=== PATIENT | male | born 1985 | race Caucasian/White ===

== ENCOUNTER 2019-09-22 15:39 | Outpatient (CLI) | payer OTHER, SELFPAY ==
[2019-09-22 16:10] LABS: Basophils Percent Auto 0.6 % (0.2-1.2); Eosinophils Absolute Auto 0.1 K/mm3 (0-0.3); Eosinophils Percent Auto 1.7 % (0-4.4); Hematocrit 43.9 % (42.0-52.0); Hemoglobin 15.2 g/dL (14.0-18.0); Immature Granulocyte Absolute 0.04 K/mm3 (0.00-0.031); Immature Granulocyte Percent A 0.6 % (0-0.5); Lymphocytes Absolute Auto 1.56 K/mm3 (0.9-3.2); Lymphocytes Percent Auto 22.1 % (18.3-44.2); Mean Corpuscular HGB Conc 34.6 g/dl (32-36); Mean Corpuscular Hemoglobin 30.6 pg (26-34); Mean Corpuscular Volume 88.5 fl (80-100); Mean Platelet Volume 10.7 fl (7.4-10.4); Monocytes Absolute Auto 0.5 K/mm3 (0.1-0.6); Monocytes Percent Auto 7.5 % (2.6-8.5); Neutrophils Absolute Auto 4.8 K/mm3 (1.3-6.7); Neutrophils Percent Auto 67.5 % (45.5-73.1); Platelet Count Result 252 k/mm3 (150-375); Red Blood Count 4.96 M/mm3 (4.6-6.20); Red Cell Distribution Width 12.2 % (11.5-14.5); White Blood Count 7.1 K/mm3 (4.5-10.0)
[2019-09-22 16:22] LABS: Alanine Aminotransferase 27 U/L (4-50); Alkaline Phosphatase 77 U/L (38-126); Aspartate Amino Transferase 24 U/L (17-59); Bilirubin,Total 0.7 mg/dL (0.2-1.3); Blood Urea Nitrogen 19 mg/dL (9-20); Calcium 9.6 mg/dL (8.4-10.2); Carbon Dioxide 25 mmol/L (22-30); Chloride 105 mmol/L (98-107); Cholesterol 181 mg/dL (0-200); Estimated Glomerular Filt Rate > 60; Glucose 88 mg/dL (75-110); HDL Direct 35 mg/dL; Potassium 4.1 mmol/L (3.4-5.0); Sodium 139 mmol/L (137-145); Triglycerides 171 mg/dL (<150)
[2019-09-22 16:34] LABS: LDL Cholesterol Direct 118 mg/dL
[2019-09-22 16:53] LABS: Total Triiodothyronine (T3) 1.53 NG/ML (0.97-1.69)
[2019-09-22 17:25] LABS: Free T4 Free Thyroxine 0.76 ng/mL (0.78-2.19)
== END 2019-09-22 15:40 | disposition home or self-care (01) ==
PROVIDERS: PCP Family Medicine; Visit Provider Nurse Practitioner Family
DX: R10.11 Right upper quadrant pain (principal); R53.83 Other fatigue; Z13.220 Encounter for screening for lipoid disorders; Z13.6 Encounter for screening for cardiovascular disorders
CPT/HCPCS: 36415; 80053; 80061; 84439; 84443; 84480; 85025

== ENCOUNTER 2019-10-07 09:26 | Outpatient (CLI) | payer OTHER, SELFPAY ==
--- NOTE | ~2019-10-07 | US_ITS ---
US right upper quadrant DATE: 10/07/2019 09:57 INDICATION: Right upper quadrant abdominal pain TECHNIQUE: Real-time imaging of liver, pancreas, gallbladder areas COMPARISON: 08/07/2016 CT abdomen pelvis noncontrast examination FINDINGS: The pancreas is obscured by bowel gas. Fatty change of the liver. There is normal hepatopedal portal venous flow. No hepatic space-occupying mass lesion is evident. The common bile duct measures 3.9 mm, within normal range. One or more filling defects of the gallbladder with associated shadowing, consistent with cholelithia sis. Color wall thickness is not optimally defined the technologist reports positive sonographic Murp hy's sign. IMPRESSION: Cholelithiasis, positive sonographic Helms's sign. Acute cholecystitis is not excluded. Reviewed, dictated and finalized at [facility]. Reviewed, dictated and finalized at location B. IMPRESSION: Cholelithiasis, positive sonographic Helms's sign. Acute cholecyst itis is not excluded.
== END 2019-10-07 09:27 | disposition home or self-care (01) ==
PROVIDERS: PCP Family Medicine; Visit Provider Family Medicine
DX: K80.20 Calculus of gallbladder without cholecystitis without obstruction (principal)
CPT/HCPCS: 76705

== ENCOUNTER 2019-10-10 05:33 | Observation (INO) | payer OTHER, SELFPAY ==
--- NOTE | ~2019-10-10 | NM_ITS ---
EXAMINATION: NM hepatobiliary w pharm DATE: 10/12/2019 08:56 INDICATION: Right upper quadrant abdominal pain. COMPARISON: Ultrasound 10/10/2019 TECHNIQUE: 5.2 mCi Tc-99m mebrofenin (Choletec) was administered intravenously. Scintigraphic images of the abdomen were obtained for one hour. Then, 2 mg morphine IV was administered, and imaging was continued for 30 minutes. FINDINGS: There is normal clearance of radiotracer from the blood pool. There is homogeneous tracer u ptake by the liver. Activity progresses to the bowel by 15 minutes. There is no activity in the gall bladder. IMPRESSION: 1. Lack of activity in the gallbladder, consistent with acute cholecystitis. Reviewed, dictated and finalized at location B.
--- NOTE | ~2019-10-10 | US_ITS ---
EXAMINATION: US right upper quadrant DATE: 10/10/2019 07:27 INDICATION: Right upper quadrant abdominal pain TECHNIQUE: Multiple grayscale and Doppler ultrasound images of the abdomen were obtained. COMPARISON: 10/07/2019 and 08/07/2016 FINDINGS: The visualized portions of the body of the pancreas is normal. The majority of the pancreas is obscur ed by shadowing gas. Liver has normal contour, with a smooth surface. There is increased parenchymal echogenicity and coarsened echotexture consistent with diffuse hepatic steatosis. Small region of mor e hypoechoic focal fatty sparing along the gallbladder fossa. No intrahepatic biliary duct dilation suspected. Portal venous flow was seen in the hepatopetal, normal direction and has normal Doppler wa veform. Mobile sludge and shadowing gallstones in the otherwise normal-appearing gallbladder. The com mon bile duct measures 4 mm, which is normal. Sonographic Helms sign was reported as positive by the materials scheduler. Visualized portion of the right kidney demonstrates normal echogenicity with no hydrone phrosis. Proximal inferior vena cava is normal. IMPRESSION: 1. Cholelithiasis with positive sonographic Helms's but normal-appearing gallbladder which is equivo flako for acute cholecystitis. Could consider HIDA scan for further evaluation. Reviewed, dictated and finalized at location A. IMPRESSION: 1. Cholelithiasis with positive sonographic Helms's but normal-appearing gallb ladder which is equivocal for acute cholecystitis. Could consider HIDA scan for further evaluation.
[2019-10-10 05:46] VITALS: PULSE 70; RESP 20; TEMP 36.3; O2SAT 100
[2019-10-10 06:01] VITALS: BP 137/92
[2019-10-10 06:03] LABS: Basophils Absolute Auto 0.1 K/mm3 (0.0-0.1); Basophils Percent Auto 0.6 % (0.2-1.2); Eosinophils Absolute Auto 0.1 K/mm3 (0-0.3); Eosinophils Percent Auto 0.4 % (0-4.4); Hematocrit 44.3 % (42.0-52.0); Hemoglobin 15.4 g/dL (14.0-18.0); Immature Granulocyte Absolute 0.06 K/mm3 (0.00-0.031); Immature Granulocyte Percent A 0.4 % (0-0.5); Lymphocytes Absolute Auto 1.18 K/mm3 (0.9-3.2); Lymphocytes Percent Auto 8.4 % (18.3-44.2); Mean Corpuscular HGB Conc 34.8 g/dl (32-36); Mean Corpuscular Hemoglobin 30.4 pg (26-34); Mean Corpuscular Volume 87.5 fl (80-100); Mean Platelet Volume 10.7 fl (7.4-10.4); Monocytes Absolute Auto 0.5 K/mm3 (0.1-0.6); Monocytes Percent Auto 3.3 % (2.6-8.5); Neutrophils Absolute Auto 12.2 K/mm3 (1.3-6.7); Neutrophils Percent Auto 86.9 % (45.5-73.1); Platelet Count Result 287 k/mm3 (150-375); Red Blood Count 5.06 M/mm3 (4.6-6.20); Red Cell Distribution Width 11.9 % (11.5-14.5); White Blood Count 14.1 K/mm3 (4.5-10.0)
--- NOTE | 2019-10-10 06:08 | ED.ABDPAIN ---
HPI - Abdominal Pain General Chief Complaint: Abdominal Pain <Awa Ahmadi MD - Last Filed: 10/10/19 20:20> Stated Complaint: RUQ pain <Awa Ahmadi MD - Last Filed: 10/10/19 20:20> Time Seen by Provider: 10/10/19 06:01 <Awa Ahmadi MD - Last Filed: 10/10/19 20:20> History of Present Illness HPI narrative: Patient presents with his for right upper quadrant pain. He has known gallstones and has had gallbladder attacks before. This episode of pain started at 1 AM. He last ate at 8 PM. He gives the pain a 9 out of 10. He has no nausea. <Awa Ahmadi MD - Last Filed: 10/10/19 20:20> MD elicited complaint: abdominal pain <Awa Ahmadi MD - Last Filed: 10/10/19 20:20> Pertinent past history: other (Cholelithiasis) <Awa Ahmadi MD - Last Filed: 10/10/19 20:20> Onset (ago): hour(s) <Awa Ahmadi MD - Last Filed: 10/10/19 20:20> Pain Consistency: constant <Awa Ahmadi MD - Last Filed: 10/10/19 20:20> Location: RUQ <Awa Ahmadi MD - Last Filed: 10/10/19 20:20> Severity: severe <Awa Ahmadi MD - Last Filed: 10/10/19 20:20> Quality: stabbing <Awa Ahmadi MD - Last Filed: 10/10/19 20:20> Migration to: no migration <Awa Ahmadi MD - Last Filed: 10/10/19 20:20> Exacerbating factors: nothing <Awa Ahmadi MD - Last Filed: 10/10/19 20:20> Relieving factors: nothing <Awa Ahmadi MD - Last Filed: 10/10/19 20:20> Associated symptoms: denies other symptoms <Awa Ahmadi MD - Last Filed: 10/10/19 20:20> Related Data Home Medications: Home Medications Medication Instructions Recorded Confirmed No Home Medications 10/10/19 10/10/19 <Awa Ahmadi MD - Last Filed: 10/10/19 20:20> Allergies/Adverse Reactions: Allergies Allergy/AdvReac Type Severity Reaction Status Date / Time shrimp Allergy Intermediate Itching Verified 10/10/19 09:06 Lobster Allergy Intermediate Itching Uncoded 10/10/19 09:07 <Awa Ahmadi MD - Last Filed: 10/10/19 20:20> Review of Systems Review of Systems: Narrative: CONSTITUTIONAL: Denies fever, chills, or sweats. EYES: Denies visual changes, redness, or discharge. ENT: Denies rhinorrhea, congestion, sore throat, or otalgia. CARDIOVASCULAR: Denies chest pain, palpitations, or edema. RESPIRATORY: Denies cough or dyspnea. GASTROINTESTINAL: He has abdominal pain, but not nausea, vomiting, or diarrhea. GENITOURINARY: Denies dysuria or hematuria. SKIN: Denies rash or itching. MUSCULOSKELETAL: Denies back pain, joint pain, or myalgia. NEUROLOGIC: Denies headache, numbness, or weakness. <Awa Ahmadi MD - Last Filed: 10/10/19 20:20> All systems reviewed & are unremarkable except as noted in HPI and below <Awa Ahmadi MD - Last Filed: 10/10/19 20:20> PMFSH Surgical History Surgical History: Surgical History (Updated 10/10/19 @ 06:11 by Awa Ahmadi MD) History of adenoidectomy History of tonsillectomy <Awa Ahmadi MD - Last Filed: 10/10/19 20:20> Social History Social History: Social History Smoking status: Never smoker Alcohol intake: never Substance use: never Gender identity (if verbalized by the patient): Male Spiritual care concerns: No <Awa Ahmadi MD - Last Filed: 10/10/19 20:20> Exam Narrative: Exam Narrative: GENERAL: Well-appearing, well-nourished, rocking in moderate distress. HEAD: Normocephalic, atraumatic. EYES: PERRLA and EOMI. ENT: Nares clear, no rhinorrhea or epistaxis. Mucous membranes moist. NECK: Supple. CHEST: Clear to auscultation. No respiratory distress. HEART: Regular rate and rhythm. No murmur heard. Normal peripheral pulses. ABDOMEN: Soft, nontender, nondistended, normal active bowel sounds. EXTREMITIES: Normal range of motion. No edema. SKIN: Warm, dry, no rash. NEURO: No focal deficits. Alert and oriented x3. PSYCH: Normal mood and affect. <Awa Ahmadi MD - Last File
[2019-10-10 06:10] LABS: Add Urine Microscopic? YES; Amorphous Sediment Urine Few; Appearance Urine Cloudy (Clear); Bacteria Urine Trace /hpf; Bilirubin Urine Negative (Negative); Blood Urine Negative (Negative); Color Urine Yellow (Yellow); Glucose Urine UA Negative (Negative); Ketones Urine Trace mg/dL (Negative); Leukocyte Esterase Ur Negative LEU/UL (Negative); Mucus Urine Few /lpf; Nitrate Urine Negative (Negative); Protein Urine Negative (Negative); RBC Urine 0-2 /hpf (0-2); Urobilinogen Urine Negative mg/dL (<2.0)
[2019-10-10 06:13] LABS: Alanine Aminotransferase 30 U/L (4-50); Alkaline Phosphatase 97 U/L (38-126); Anion Gap 14 mmol/L (8-16); Aspartate Amino Transferase 25 U/L (17-59); Bilirubin,Total 0.3 mg/dL (0.2-1.3); Blood Urea Nitrogen 17 mg/dL (9-20); Calcium 9.8 mg/dL (8.4-10.2); Carbon Dioxide 21 mmol/L (22-30); Chloride 107 mmol/L (98-107); Estimated Glomerular Filt Rate > 60; Glucose 150 mg/dL (75-110); Lipase 115 U/L (23-300); Potassium 3.6 mmol/L (3.4-5.0); Sodium 142 mmol/L (137-145)
[2019-10-10] MEDS: MORPHINE SULFATE 4 MG/ML INJ IV PUSH ×4 (06:13→16:05)
[2019-10-10] MEDS: SODIUM CHLORIDE 0.9% IV 1,000 ML 999 ML IV CONT (06:14)
[2019-10-10 08:39] VITALS: TEMP 36.7
--- NOTE | 2019-10-10 09:02 | ADMGEN ---
This patient, Sebastián Denis, was admitted to Medical Room 243-01. Patient/family oriented to hospital policies and general routines including ID bracelet, bed and alarms, visiting hours, pain management, procedures, bathroom and other care routines, personal items, smoking policy, room service/diet, and visiting hours. Valuables list has been completed. Information on how to activate the Rapid Response Team has been discussed. Patient/Family are encouraged to report perceived risks to care and to ask questions if they do not understand what they are told or what they should do.
[2019-10-10 09:12] VITALS: BP 138/68; PULSE 60; RESP 19; TEMP 36.5; O2SAT 100; BMI 27.3
[2019-10-10] MEDS: SODIUM CHLORIDE 0.9% IV 1,000 ML 125 ML IV CONT ×2 (09:25→17:28)
--- NOTE | 2019-10-10 12:03 | PM.IMHP ---
H&P: HPI History of Present Illness Date/Time: 10/10/19 12:03 Chief complaint: RUQ pain, cholelithiasis Narrative: Sebastián Denis is a 34 year old male With past medical history of gallstone and on and off he has had right upper quadrant pain however this time the pain was worse 9/10, nausea and vomiting pain was not improving, patient presented emergency department for further evaluation abdominal ultrasound is equivocal recommending HIDA scan to further evaluate, patient has had general anesthesia in the past without any complication, denies any cardiac or lung issues his able to climb stairs without any difficulty or shortness of breath. will follow-up on HIDA scan is positive will have General surgery evaluate the patient possible surgery Review of Systems Review of Systems: All systems reviewed & are unremarkable except as noted in HPI and below [facility] Surgical History Surgical History (Updated 10/10/19 @ 06:11 by Awa Ahmadi MD) History of adenoidectomy History of tonsillectomy Social History Social History Smoking status: Never smoker Alcohol intake: never Substance use: never Gender identity (if verbalized by the patient): Male Spiritual care concerns: No Meds Home Medications and Allergies Home Medications Medication Instructions Recorded Confirmed Type No Home Medications 10/10/19 10/10/19 History Allergies Allergy/AdvReac Type Severity Reaction Status Date / Time shrimp Allergy Intermediate Itching Verified 10/10/19 09:06 Lobster Allergy Intermediate Itching Uncoded 10/10/19 09:07 Vital Signs Vital Signs - 24 hr 10/10/19 05:46 10/10/19 06:01 10/10/19 08:39 Temperature 97.3 F L 98.0 F Pulse Rate 70 Respiratory Rate 20 Blood Pressure 137/92 H Pulse Oximetry 100 10/10/19 09:12 Temperature 97.7 F Pulse Rate 60 Respiratory Rate 52 H Blood Pressure 138/68 Pulse Oximetry 100 Exam Const: General: no acute distress and uncomfortable HENMT: General nose exam: Normal nares present Mouth: Yes moist mucous membranes Eyes: General: appearance normal, both eyes and all related structures Sclera: sclerae normal Neck: Neck: supple Resp: Effort & Inspection: normal respiratory effort Auscultation: clear to auscultation bilaterally Cardio: Rate: regular rate Rhythm: regular rhythm GI: Other: bowel sounds are positive tender in right upper quadrant Skin: General skin exam: normal color Neuro: Speech: normal speech Sensory Exam: normal sensation Extrem: General: normal to inspection Psych: Affect: Anxious affect present H&P: Results Labs Labs: Short CBC 10/10/19 Range/Units 05:55 WBC 14.1 H (4.5-10.0) K/mm3 Hgb 15.4 (14.0-18.0) g/dL Hct 44.3 (42.0-52.0) % Plt Count 287 (150-375) k/mm3 BMP 10/10/19 05:55 Sodium 142 Potassium 3.6 Chloride 107 Carbon Dioxide 21 L BUN 17 Creatinine 0.90 Glucose 150 H Calcium 9.8 Liver Function 10/10/19 Range/Units 05:55 Total Bilirubin 0.3 (0.2-1.3) mg/dL AST 25 (17-59) U/L ALT 30 (4-50) U/L Alkaline Phosphatase 97 (38-126) U/L Albumin 5.0 (3.5-5.1) g/dL Urine 10/10/19 Range/Units 05:57 Urine Color Yellow (Yellow) Urine Appearance Cloudy H (Clear) Urine pH 8.0 (5.0-9.0) Ur Specific [place] 1.020 (1.001-1.035) Urine Protein Negative (Negative) mg/dL Urine Glucose (UA) Negative (Negative) mg/dL Assessment and Plan Assessment and plan (1) Abdominal pain: Qualifiers: Abdominal location: right upper quadrant Qualified Code(s): R10.11 - Right upper quadrant pain Code(s): R10.9 - Unspecified abdominal pain Status: Acute Assessment and Plan: Sebastián Denis is a 34 year old male With past medical history of gallstone and on and off he has had right upper quadrant pain however this time the pain was worse 9/10, nausea and vomiting pain was not improving, patient presented e
[2019-10-10 14:00] VITALS: BP 155/82; PULSE 114; RESP 17; TEMP 36.6; O2SAT 100
[2019-10-10 21:12] VITALS: BP 130/70; PULSE 87; RESP 16; TEMP 36.5; O2SAT 100
[2019-10-11] MEDS: SODIUM CHLORIDE 0.9% IV 1,000 ML 125 ML IV CONT ×3 (00:09→17:13)
[2019-10-11 05:37] LABS: Basophils Absolute Auto 0.1 K/mm3 (0.0-0.1); Basophils Percent Auto 0.6 % (0.2-1.2); Eosinophils Absolute Auto 0.3 K/mm3 (0-0.3); Eosinophils Percent Auto 2.6 % (0-4.4); Hematocrit 39.5 % (42.0-52.0); Hemoglobin 13.3 g/dL (14.0-18.0); Immature Granulocyte Absolute 0.06 K/mm3 (0.00-0.031); Immature Granulocyte Percent A 0.6 % (0-0.5); Lymphocytes Absolute Auto 1.84 K/mm3 (0.9-3.2); Lymphocytes Percent Auto 17.1 % (18.3-44.2); Mean Corpuscular HGB Conc 33.7 g/dl (32-36); Mean Corpuscular Hemoglobin 30.3 pg (26-34); Mean Platelet Volume 10.7 fl (7.4-10.4); Monocytes Absolute Auto 1.1 K/mm3 (0.1-0.6); Neutrophils Absolute Auto 7.4 K/mm3 (1.3-6.7); Neutrophils Percent Auto 69.1 % (45.5-73.1); Platelet Count Result 217 k/mm3 (150-375); Red Blood Count 4.39 M/mm3 (4.6-6.20); Red Cell Distribution Width 12.4 % (11.5-14.5); White Blood Count 10.8 K/mm3 (4.5-10.0)
[2019-10-11 05:45] VITALS: BP 113/71; PULSE 71; RESP 16; TEMP 36.1; O2SAT 98
[2019-10-11 06:01] LABS: Alanine Aminotransferase 22 U/L (4-50); Albumin Level 3.7 g/dL (3.5-5.1); Alkaline Phosphatase 66 U/L (38-126); Anion Gap 6 mmol/L (8-16); Aspartate Amino Transferase 19 U/L (17-59); Bilirubin,Total 0.5 mg/dL (0.2-1.3); Blood Urea Nitrogen 8 mg/dL (9-20); Calcium 8.3 mg/dL (8.4-10.2); Carbon Dioxide 22 mmol/L (22-30); Chloride 107 mmol/L (98-107); Estimated CRCL calculation 109 ml/min; Estimated Glomerular Filt Rate > 60; Glucose 113 mg/dL (75-110); Potassium 3.6 mmol/L (3.4-5.0); Sodium 135 mmol/L (137-145)
--- NOTE | 2019-10-11 13:43 | PM.IMPN ---
Progress Note: A&P Assessment and Plan (1) Abdominal pain: Qualifiers: Abdominal location: right upper quadrant Qualified Code(s): R10.11 - Right upper quadrant pain Code(s): R10.9 - Unspecified abdominal pain Status: Acute Assessment and Plan: 10/11/19 13:43 Sebastián Denis is a 34 year old male With past medical history of gallstone and on and off he has had right upper quadrant pain however this time the pain was worse 9/10, nausea and vomiting pain was not improving, patient presented emergency department for further evaluation abdominal ultrasound is equivocal recommending HIDA scan to further evaluate, patient has had general anesthesia in the past without any complication, denies any cardiac or lung issues his able to climb stairs without any difficulty or shortness of breath. today patient seen by surgery team started on clear liquid and advanced diet as tolerated, patient will have HIDA scan in the morning, will follow-up on HIDA scan if positive and General surgery will evaluate the patient and further recommendation to follow, patient is present in the room (2) Cholelithiasis: Code(s): K80.20 - Calculus of gallbladder without cholecystitis without obstruction Status: Acute Assessment and Plan: will follow-up on HIDA scan and further recommendation to follow Subjective Date/time seen: 10/11/19 13:43 Sebastián Denis is a 34 year old male With past medical history of gallstone and on and off he has had right upper quadrant pain however this time the pain was worse 9/10, nausea and vomiting pain was not improving, patient presented emergency department for further evaluation abdominal ultrasound is equivocal recommending HIDA scan to further evaluate, patient has had general anesthesia in the past without any complication, denies any cardiac or lung issues his able to climb stairs without any difficulty or shortness of breath. today patient seen by surgery team started on clear liquid and advanced diet as tolerated, patient will have HIDA scan in the morning, will follow-up on HIDA scan if positive and General surgery will evaluate the patient and further recommendation to follow, patient is present in the room Review of Systems Review of Systems: All systems reviewed & are unremarkable except as noted in HPI and below Exam Const: General: no acute distress and uncomfortable HENMT: General nose exam: Normal nares present Mouth: Yes moist mucous membranes Eyes: General: appearance normal, both eyes and all related structures Sclera: sclerae normal Neck: Neck: supple Resp: Effort & Inspection: normal respiratory effort Auscultation: clear to auscultation bilaterally Cardio: Rate: regular rate Rhythm: regular rhythm GI: Other: bowel sounds are positive tender in right upper quadrant Skin: General skin exam: normal color Neuro: Speech: normal speech Sensory Exam: normal sensation Extrem: General: normal to inspection Psych: Affect: Anxious affect present Objective Data Vital Signs Vital Signs: Vital Signs - 24 hr 10/10/19 14:00 10/10/19 21:12 10/11/19 05:45 Temperature 98 F 97.7 F 97.0 F L Pulse Rate 114 H 87 71 Respiratory Rate 17 16 16 Blood Pressure 155/82 H 130/70 113/71 Pulse Oximetry 100 100 98 Intake/Output Intake/Output: Intake & Output 10/08/19 10/09/19 10/10/19 10/11/19 23:59 23:59 23:59 23:59 Intake Total 2100 2000 Output Total 650 Balance 2100 1350 Meds/Results Medications: Active Medications Generic Name Dose Route Start Last Admin Trade Name Freq PRN Reason Stop Dose Admin Sodium Chloride 1,000 mls @ 125 mls/hr 10/10/19 08:10 10/11/19 08:35 Normal Saline Iv IV CONT 125 mls/hr .Q8H KIRK Administration Acetaminophen 1,000 mg in 100 mls @ 400 mls/hr 10/11/19 11:32 10/11/19 11:45 Ofirmev 1,000 Mg Ivpb IVPB 10/12/19 11:33 400 mls/hr Q6H PRN Administration Pain Morph
--- NOTE | 2019-10-11 13:55 | PM.CNGS ---
Assessment and Plan Assessment and plan (1) Cholelithiasis and cholecystitis without obstruction: Code(s): K80.10 - Calculus of gallbladder with chronic cholecystitis without obstruction Status: Acute Assessment and Plan: pain is better. Will go ahead and start liquids today. HIDA scan is ordered for tomorrow morning. If patient tolerating liquids and not having recurrence of his pain, he may be able to be discharged to return soon for laparoscopic cholecystectomy. Will see how he progresses after starting oral intake. History of Present Illness Consult details Consult date: 10/11/19 Reason for consult: gallstones Narrative: Patient is a 34-year-old man who has had episodes of right upper quadrant abdominal pain associated with nausea and occasionally vomiting. He was in the process of getting this evaluated and in fact had an ultrasound of the right upper quadrant on October 06. This ultrasound showed gallstones and a positive sonographic Helms sign. The patient however experienced severe right upper quadrant abdominal pain starting at 1:00 a.m. on October 09 and eventually came to the emergency room as this was not improving. In the emergency room he was noted to have tenderness in the right upper quadrant. His white blood cell count was elevated to 14,100. He had normal liver function tests and a normal lipase. He had an ultrasound which showed stones and a positive sonographic Helms sign. There was no gallbladder wall thickening or pericholecystic fluid. He was admitted to the hospitalist and I was asked to see the patient in consultation. This morning the patient tells me his abdomen feels quite a bit better than when he was in the emergency room. He still has some soreness and not a lot of appetite. He has had similar episodes but nothing anywhere near as severe as what he had yesterday. Review of Systems Review of Systems: All systems reviewed & are unremarkable except as noted in HPI and below ( HPI) [facility] Surgical History Surgical History History of adenoidectomy History of tonsillectomy Family History Family History Mother Family history of hypercholesterolemia Hypertension Diabetes mellitus Father Family history of liver disease Family history of alcoholism Other Family history of allergic disorder Social History Social History Smoking status: Never smoker Alcohol intake: never Substance use: never Gender identity (if verbalized by the patient): Male Spiritual care concerns: No Meds Home Medications and Allergies Home Medications Medication Instructions Recorded Confirmed Type No Home Medications 10/10/19 10/10/19 History Allergies Allergy/AdvReac Type Severity Reaction Status Date / Time shrimp Allergy Intermediate Itching Verified 10/10/19 09:06 Lobster Allergy Intermediate Itching Uncoded 10/10/19 09:07 Vital Signs Vital Signs - 24 hr 10/10/19 14:00 10/10/19 21:12 10/11/19 05:45 Temperature 36.6 C 36.5 C 36.1 C L Pulse Rate 114 H 87 71 Respiratory Rate 17 16 16 Blood Pressure 155/82 H 130/70 113/71 Pulse Oximetry 100 100 98 Exam Const: General: comfortable, no acute distress, alert and awake HENMT: Head: normocephalic and atraumatic Ears: hearing grossly normal bilaterally and external ears normal General nose exam: Normal external nose present, no nasal discharge noted and no epistaxis Face and sinus: normal facial exam, face symmetric, no tenderness and dry mucous membranes Mouth: Yes Normal oral and palatal mucosa present and No tongue abnormal Eyes: Conjunctivae: conjunctivae normal Sclera: sclerae normal Pupils: Equal, round and reactive pupils present EOM: EOMs intact bilaterally Neck: Neck: no lymphadenopathy, nontender and No submandibular swelling Thyroid:
[2019-10-11 14:00] VITALS: BP 118/65; PULSE 84; RESP 15; TEMP 36.6; O2SAT 98
[2019-10-11 19:20] LABS: Lipase 61 U/L (23-300)
[2019-10-11 22:00] VITALS: BP 107/66; PULSE 84; RESP 12; TEMP 37.3; O2SAT 100
[2019-10-12] MEDS: SODIUM CHLORIDE 0.9% IV 1,000 ML 125 ML IV CONT (01:26)
[2019-10-12 05:32] VITALS: BP 103/65; PULSE 73; RESP 12; TEMP 36.6; O2SAT 99
[2019-10-12 05:37] LABS: Basophils Percent Auto 0.5 % (0.2-1.2); Eosinophils Absolute Auto 0.3 K/mm3 (0-0.3); Eosinophils Percent Auto 3.5 % (0-4.4); Hematocrit 38.3 % (42.0-52.0); Immature Granulocyte Absolute 0.03 K/mm3 (0.00-0.031); Immature Granulocyte Percent A 0.4 % (0-0.5); Lymphocytes Absolute Auto 1.66 K/mm3 (0.9-3.2); Lymphocytes Percent Auto 20.9 % (18.3-44.2); Mean Corpuscular HGB Conc 33.9 g/dl (32-36); Mean Corpuscular Volume 88.2 fl (80-100); Mean Platelet Volume 10.6 fl (7.4-10.4); Monocytes Absolute Auto 0.6 K/mm3 (0.1-0.6); Monocytes Percent Auto 7.9 % (2.6-8.5); Neutrophils Absolute Auto 5.3 K/mm3 (1.3-6.7); Neutrophils Percent Auto 66.8 % (45.5-73.1); Platelet Count Result 219 k/mm3 (150-375); Red Blood Count 4.34 M/mm3 (4.6-6.20); White Blood Count 7.9 K/mm3 (4.5-10.0)
[2019-10-12 05:56] LABS: Alanine Aminotransferase 31 U/L (4-50); Albumin Level 3.6 g/dL (3.5-5.1); Alkaline Phosphatase 63 U/L (38-126); Anion Gap 6 mmol/L (8-16); Aspartate Amino Transferase 24 U/L (17-59); Bilirubin,Total 0.7 mg/dL (0.2-1.3); Blood Urea Nitrogen 6 mg/dL (9-20); Calcium 8.6 mg/dL (8.4-10.2); Carbon Dioxide 25 mmol/L (22-30); Chloride 108 mmol/L (98-107); Estimated CRCL calculation 109 ml/min; Estimated Glomerular Filt Rate > 60; Glucose 102 mg/dL (75-110); Potassium 3.6 mmol/L (3.4-5.0); Sodium 139 mmol/L (137-145)
--- NOTE | 2019-10-12 07:04 | PM.PNGS ---
Progress Note: A&P Assessment and Plan (1) Cholelithiasis and cholecystitis without obstruction: Code(s): K80.10 - Calculus of gallbladder with chronic cholecystitis without obstruction Status: Acute Assessment and Plan: Patient doing much better. Can go home after HIDA scan from my perspective. My office will call him tomorrow and we will proceed with laparoscopic cholecystectomy later this week or early next week. I discussed the procedure with him. Discharge instructions were written. Subjective Subjective Date/Time Seen: 10/12/19 07:04 Patient reports: pain is less ( Abdominal pain is gone. Tolerated liquids without problems.) and afebrile Review of Systems Review of Systems: All systems reviewed & are unremarkable except as noted in HPI and below Constitutional: Constitutional: Denies anorexia, Denies chills, Denies fever(s), Denies headache(s) and Denies poor appetite Cardiovascular: Cardiovascular: Denies chest pain and Denies dyspnea Respiratory: Respiratory: Denies cough and Denies dyspnea Gastrointestinal: Gastrointestinal: Reports as per HPI, Denies abdominal pain, Denies nausea and Denies vomiting Neurologic: Denies confusion and Denies headache(s) Exam Const: General: comfortable and no acute distress; No confusion Orientation/consciousness: patient oriented x3 and No confusion GI: Inspection: normal to inspection GI Palp: Yes Soft to palpation, No Tenderness to palpation present (GI), No Guarding due to palpation present (GI) and No Rebound tenderness present Auscultation: normal bowel sounds Neuro: General: patient oriented x3, no focal motor deficits and No confusion Extrem: General: no calf tenderness and no edema Psych: Affect: normal affect Insight: Good insight present (Psych) Judgement: Good judgement present (Psych) Objective Data Vital Signs Vital Signs: Vital Signs - 24 hr 10/11/19 14:00 10/11/19 22:00 10/12/19 05:32 Temperature 36.6 C 37.3 C 36.6 C Pulse Rate 84 84 73 Respiratory Rate 15 12 12 Blood Pressure 118/65 107/66 103/65 Pulse Oximetry 98 100 99 Intake/Output Intake/Output: Intake & Output 10/09/19 10/10/19 10/11/19 10/12/19 23:59 23:59 23:59 23:59 Intake Total 2100 5080 1110 Output Total 1325 1100 Balance 2100 3755 10 Meds/Results Medications: Active Medications Generic Name Dose Route Start Last Admin Trade Name Patrickq PRN Reason Stop Dose Admin Sodium Chloride 1,000 mls @ 125 mls/hr 10/10/19 08:10 10/12/19 01:26 Normal Saline Iv IV CONT 125 mls/hr .Q8H KIRK Administration Acetaminophen 1,000 mg in 100 mls @ 400 mls/hr 10/11/19 11:32 10/11/19 12:00 Ofirmev 1,000 Mg Ivpb IVPB 10/12/19 11:33 Infused Q6H PRN Infusion Pain Morphine Sulfate 4 mg 10/10/19 08:06 10/10/19 16:05 Morphine Sulfate Inj IV PUSH 4 mg Q2H PRN Administration Pain Rated 7-10 Radiology Results: ITS Impressions Upper Quadrant Ultrasound 10/10/19 07:38 IMPRESSION: 1. Cholelithiasis with positive sonographic Helms's but normal-appearing gallbladder which is equivocal for acute cholecystitis. Could consider HIDA scan for further evaluation. Labs Labs: Laboratory Results - last 24 hr 10/11/19 10/12/19 10/12/19 18:38 04:59 04:59 WBC 7.9 RBC 4.34 L Hgb 13.0 L Hct 38.3 L MCV 88.2 MCH 30.0 MCHC 33.9 RDW 12.0 Plt Count 219 MPV 10.6 H Immature Gran % (Auto) 0.4 Neut % (Auto) 66.8 Lymph % (Auto) 20.9 Martin % (Auto) 7.9 Eos % (Auto) 3.5 Baso % (Auto) 0.5 Lymph # (Auto) 1.66 Martin # (Auto) 0.6 Eos # (Auto) 0.3 Baso # (Auto) 0.0 Abs Immat Gran (auto) 0.03 Absolute Neuts (auto) 5.3 Absolute Nucleated RBC 0.0 Nucleated RBC % 0.0 Sodium 139 Potassium 3.6 Chloride 108 H Carbon Dioxide 25 Anion Gap 6 L BUN 6 L Creatinine 0.80 Estim Creat Clear Calc 109 Estimated GFR > 60 Glucose 102 Calc
--- NOTE | 2019-10-12 07:14 | PC.NURSE ---
Patient to NM per wheelchair, IV saline locked.
[2019-10-12] MEDS: MORPHINE SULFATE 2 MG/ML INJ IV PUSH (08:27)
--- NOTE | 2019-10-12 08:58 | PC.NURSE ---
Patient return from NM scan.
--- NOTE | 2019-10-12 09:59 | PM.DS ---
DS: Admitting Diagnosis Admitting Diagnosis Admitting Diagnosis: Right upper quadrant pain DS: Discharge Diagnosis Discharge Diagnosis (1) Abdominal pain: Qualifiers: Abdominal location: right upper quadrant Qualified Code(s): R10.11 - Right upper quadrant pain Code(s): R10.9 - Unspecified abdominal pain Status: Deleted Assessment and Plan: 10/11/19 13:43 Sebastián Denis is a 34 year old male With past medical history of gallstone and on and off he has had right upper quadrant pain however this time the pain was worse 9/10, nausea and vomiting pain was not improving, patient presented emergency department for further evaluation abdominal ultrasound is equivocal recommending HIDA scan to further evaluate, patient has had general anesthesia in the past without any complication, denies any cardiac or lung issues his able to climb stairs without any difficulty or shortness of breath. today patient seen by surgery team started on clear liquid and advanced diet as tolerated, patient will have HIDA scan in the morning, will follow-up on HIDA scan if positive and General surgery will evaluate the patient and further recommendation to follow, patient is present in the room (2) Cholelithiasis: Code(s): K80.20 - Calculus of gallbladder without cholecystitis without obstruction Status: Deleted Assessment and Plan: will follow-up on HIDA scan and further recommendation to follow DS: Summary Hospital Course Reason for hospitalization: Chief complaint: RUQ pain, cholelithiasis Narrative: Sebastián Denis is a 34 year old male With past medical history of gallstone and on and off he has had right upper quadrant pain however this time the pain was worse 9/10, nausea and vomiting pain was not improving, patient presented emergency department for further evaluation abdominal ultrasound is equivocal recommending HIDA scan to further evaluate, patient has had general anesthesia in the past without any complication, denies any cardiac or lung issues his able to climb stairs without any difficulty or shortness of breath. will follow-up on HIDA scan is positive will have General surgery evaluate the patient possible surgery Hospital Course: Sebastián Denis is a 34 year old male With past medical history of gallstone and on and off he has had right upper quadrant pain however this time the pain was worse 9/10, nausea and vomiting pain was not improving, patient presented emergency department for further evaluation abdominal ultrasound is equivocal recommending HIDA scan to further evaluate, patient has had general anesthesia in the past without any complication, denies any cardiac or lung issues his able to climb stairs without any difficulty or shortness of breath. today patient seen by surgery team started on clear liquid and advanced diet as tolerated, patient will have HIDA scan in the morning, will follow-up on HIDA scan if positive and General surgery will evaluate the patient and further recommendation to follow, patient is present in the room Status at Discharge Functional status at discharge: independent ambulation Overall status at discharge: patient is back to baseline Time Spent with Patient Time attestation: Total time spent providing and/or coordinating discharge services: Patient was seen and examined at the time of the discharge Condition at discharge is stable Code status: Full code. Time spent preparing discharge summary, discharge medications, discussing discharge planning with case resolution specialist and patient is 35 minutes. Time spent: Greater than 30 minutes Exam Const: General: no acute distress and uncomfortable HENMT: General nose exam: Normal nares present Mouth: Yes moist mucous membranes Eyes: General: appearance normal, both eyes and all related structures Sclera: sclerae normal Neck: Neck: supple Resp: Effort & Inspection: normal respiratory effort Auscultation: lorna
== END 2019-10-12 10:28 | disposition home or self-care (01) ==
LOC: ANHED 08:05 → ANH2MED 08:23
PROVIDERS: Emergency Medicine; Admitting Provider Family Medicine; Emergency Provider Emergency Medicine; PCP Family Medicine; Visit Provider Family Medicine
DX: K80.10 Calculus of gallbladder with chronic cholecystitis without obstruction (principal)
CPT/HCPCS: 36415; 76705; 78227; 80053; 81001; 83690; 85025; 96361; 96374; 96375; 96376; 99285; A9537; G0378; J0131; J1170; J2270; J7030

== ENCOUNTER 2019-10-17 01:52 | Outpatient (CLI) | payer OTHER, SELFPAY ==
[2019-10-17 18:01] LABS: SARS-CoV-2 RNA PCR Negative
== END 2019-10-17 01:53 | disposition home or self-care (01) ==
LOC: ANHCOVIDDT 01:52
PROVIDERS: PCP Family Medicine; Visit Provider Surgery
DX: Z01.812 Encounter for preprocedural laboratory examination (principal); Z20.828 Contact with and (suspected) exposure to other viral communicable diseases
CPT/HCPCS: 87635; C9803; U0003

== ENCOUNTER 2019-10-17 07:12 | Outpatient (CLI) | payer OTHER, SELFPAY ==
[2019-10-17 08:00] LABS: Alanine Aminotransferase 23 U/L (4-50); Albumin Level 4.4 g/dL (3.5-5.1); Alkaline Phosphatase 67 U/L (38-126); Amylase 118 U/L (30-110); Aspartate Amino Transferase 21 U/L (17-59); Bilirubin,Total 0.6 mg/dL (0.2-1.3); Lipase 87 U/L (23-300)
== END 2019-10-17 07:13 | disposition home or self-care (01) ==
PROVIDERS: PCP Family Medicine; Visit Provider Surgery
DX: K80.10 Calculus of gallbladder with chronic cholecystitis without obstruction (principal)
CPT/HCPCS: 36415; 80076; 82150; 83690; 86850; 86900; 86901

== ENCOUNTER 2019-10-20 03:25 | Day surgery (SDC) | payer OTHER, SELFPAY ==
[2019-10-13 10:20] VITALS: BMI 31.1
[2019-10-20] VITALS (9 sets, daily range): BP systolic 103–132; BP diastolic 60–77; PULSE 72–98; RESP 12–23; TEMP 36.1–36.7; O2SAT 98–100
[2019-10-20] MEDS: ACETAMINOPHEN 500 MG TABLET 1000 MG PO (08:54)
[2019-10-20] MEDS: LACTATED RINGERS 1,000 ML 30 ML IV CONT ×2 (08:55→11:48)
[2019-10-20] MEDS: KETOROLAC 15 MG/ML VIAL (*BKC) IV PUSH (09:02)
--- NOTE | 2019-10-20 09:29 | WPDANESEPPF ---
Anes - Initial Pre Proc Eval Procedure: Operation Date: 10/20/19 10:00 Proposed Procedures p Laparoscopic Cholecystectomy - Angel Villanueva MD Date/Time: 10/20/19 09:29 Surgeon: Angel Villanueva MD Pre Op Diagnosis: chronic cholecystitis with stones Patient Data Age: 34 Gender: M Height: 5 ft 8 in Weight: 88.1 kg Last Vital Signs Temp 36.7 C 10/20/19 08:23 Pulse 98 10/20/19 08:23 Resp 16 10/20/19 08:23 BP 132/77 10/20/19 08:23 Pulse Ox 100 10/20/19 08:23 Allergies Allergy/AdvReac Type Severity Reaction Status Date / Time shrimp Allergy Intermediate SCRATCHY Verified 10/20/19 08:38 THROAT Lobster Allergy Intermediate SCRATCHY Uncoded 10/20/19 08:38 THROAT Home Medications Medication Instructions Recorded Confirmed Type No Home Medications 10/10/19 10/20/19 History Patient hx anesthesia problems: none Family hx anesthesia problems: none PMFSH Past Medical History Medical History OCD (obsessive compulsive disorder) Surgical History Surgical History History of adenoidectomy History of tonsillectomy Family History Family History Mother Family history of hypercholesterolemia Hypertension Diabetes mellitus Father Family history of liver disease Family history of alcoholism Other Family history of allergic disorder Social History Social History Smoking status: Never smoker Alcohol intake: never Substance use: never Gender identity (if verbalized by the patient): Male Spiritual care concerns: No Anes - Eval Final PreProcedure Day of Procedure 10/20/19 09:29 Patient weight: overweight Heart: regular rate and rhythm Lungs: clear to auscultation Airway: Mallampati scale class II Neurological: alert and oriented Last oral intake: >/= 8 hours ASA classification: II Emergent: no Anesthetic plan: proceed Anesthesia type and monitoring: general ETT and standard monitoring Informed Consent: The patient's anesthetic plan and its attendant risks and benefits were discussed with the patient/family/POA. Questions were solicited and answers provided to the satisfaction of the patient/family/POA.
[2019-10-20] MEDS: SCOPOLAMINE 1.5 MG PATCH TRANSDERM (09:44)
--- NOTE | 2019-10-20 10:02 | WPDHPUPDATE1 ---
History and Physical Update Update Date/Time: 10/20/19 10:02 History and Physical has been reviewed, including an updated exam of the patient. There are NO changes in the patient's condition. Risks, benefits, and alternatives have been discussed and questions answered. Patient agrees to proceed with procedure.
[2019-10-20] MEDS: ceFAZolin 2 GM/D5W 50 ML 2 GM/50 ML BAG IVPB (10:21)
[2019-10-20] MEDS: BUPIVACAINE/EPINEPHRINE 0.5% 30 ML VIAL INFILTRATE (10:36)
--- NOTE | 2019-10-20 11:55 | PM.PROC ---
Procedure Note - Detailed Date of procedure: 10/20/19 Pre-op diagnosis: chronic cholecystitis with stones Chronic cholecystitis, cholelithiasis Post-op diagnosis: same Procedure performed: Laparoscopic cholecystectomy Description of procedure: The patient was taken to surgery and induced into general anesthesia. The abdomen was prepped and draped. Trocars were placed in the usual fashion using 0.5% Marcaine with epinephrine and applied Medical optical trocars. A 5 millimeter camera was used. There were numerous right upper quadrant and, anterior abdominal wall adhesions that required adhesiolysis to visualize the gallbladder. These adhesions were taken down and we then proceeded with the surgery. The gallbladder had numerous adhesions as well. Some of these were taken down. The gallbladder was decompressed with a laparoscopic aspirator. The cholecystotomy was closed with a Vicryl endo-loop. The gallbladder wall was thickened and there were many stones in fact the gallbladder was full of gallstones. There was much evidence of chronic inflammation. More adhesions were taken down around the infundibulum of the gallbladder. These were more tenacious but eventually were freed such that the infundibulum of the gallbladder could be grasped. The gallbladder was retracted anterosuperiorly. Adhesions to the gallbladder were taken down so that the cholecystohepatic triangle was exposed as mentioned previously. Traction was placed on the infundibulum. The cystic duct and cystic artery were dissected out very clearly. The gallbladder was dissected off the liver at its lower 3rd. Critical view was achieved. We securely clipped and divided the cystic duct and cystic artery. The gallbladder was then further retracted so that the peritoneal attachments to the liver could be divided. Once the gallbladder was freed entirely, it was placed in an Endo-Catch bag and retrieved through the 10 11 epigastric trocar site. The epigastric trocar site had to be dilated to accommodate the gallbladder. Besides having a thickened gallbladder wall, there were many stones in the gallbladder making its removal more difficult. Eventually the gallbladder was extricated. The epigastric trocar was then replaced. We used a towel clip to occlude the epigastric trocar site so that we could reinsufflate. We reviewed the right upper quadrant. It was irrigated and suctioned. All looked good with no evidence of bleeding or bile leakage. We evacuated CO2 and removed the trocar sleeves. The fascia at the epigastric trocar site was closed with 0 Vicryl suture. Skin wounds were closed with subcuticular 4 O Monocryl skin suture. The wounds were dressed with Exofin surgical adhesive. Patient was awakened and taken to recovery in good condition. Sponge and needle counts were correct x2. Anesthesia: GETA and local (0.5% Marcaine with epinephrine) Surgeon: Angel Villanueva MD Controlled Area Checker: Tristian SHUKLA Estimated blood loss (mL): 20 Drains: No Packing: No Pathology: yes (Gallbladder) Complications: None Condition: stable Disposition: PACU Findings: severe chronic inflammation, many gallstones noted. No biliary ductal dilatation, no liver abnormalities.
== END 2019-10-20 13:28 | disposition home or self-care (01) ==
PROVIDERS: PCP Family Medicine; Visit Provider Surgery
PROC: 0FT44ZZ Resection of Gallbladder, Percutaneous Endoscopic Approach (ICD-10-PCS; CPT 47562; principal; 2019-10-20 10:00)
DX: K80.10 Calculus of gallbladder with chronic cholecystitis without obstruction (principal)
CPT/HCPCS: 47562; 88304; A9270; C1713; J0690; J1100; J1885; J2250; J2270; J2405; J2704; J3010; J7030; J7120

== ENCOUNTER 2021-03-21 12:47 | Emergency (ER) | payer OTHER, SELFPAY ==
--- NOTE | 2021-03-21 13:01 | ED.URI ---
HPI - URI/Sore Throat General Chief Complaint: Upper Respiratory Infection Stated Complaint: fever,chills,headache,sorethroat Time Seen by Provider: 03/21/21 13:08 Source: patient and RN notes reviewed Mode of arrival: ambulatory Limitations: no limitations History of Present Illness HPI Narrative: 36-year-old male presents with concern for sinus pain, fever, chills, headache, dizziness and cough. Reports symptoms started with sore throat on Saturday, the rest of the symptoms started yesterday. He reports his was recently positive for COVID. He denies any shortness of breath. Reports has been taking NyQuil and ibuprofen. MD elicited complaint: sore throat and sinus pain Related Data Allergies Allergy/AdvReac Type Severity Reaction Status Date / Time shrimp Allergy Intermediate SCRATCHY Verified 11/16/19 13:09 THROAT Lobster Allergy Intermediate SCRATCHY Uncoded 10/26/19 11:10 THROAT Review of Systems Review of Systems: CONSTITUTIONAL: Denies malaise, chills, sweats, or fever. EYES: Denies visual changes, redness, or discharge. ENT: Reports rhinorrhea, congestion, sinus pain, and sore throat. CARDIOVASCULAR: Denies chest pain, palpitations, or edema. RESPIRATORY: Reports cough. Denies dyspnea. GASTROINTESTINAL: Denies abdominal pain, nausea, vomiting, diarrhea SKIN: Denies rash or itching. MUSCULOSKELETAL: Denies myalgia. NEUROLOGIC: Denies headache. All systems reviewed & are unremarkable except as noted in HPI and below PMFSH Past Medical History Medical History (Updated 03/21/21 @ 13:22 by Sue Ruiz NP) OCD (obsessive compulsive disorder) Surgical History Surgical History History of adenoidectomy History of tonsillectomy Hx laparoscopic cholecystectomy 10/20/19 Family History Family History Mother Family history of hypercholesterolemia Hypertension Diabetes mellitus Father Family history of liver disease Family history of alcoholism Other Family history of allergic disorder Social History Social History Smoking status: Never smoker Alcohol intake: never Substance use: never Gender identity (if verbalized by the patient): Male Spiritual care concerns: No Comments At time of signature, agree with nursing past medical, surgical, social and family history. There is no relevant family history pertinent to the presenting complaint Exam Narrative: GENERAL: Well-appearing, well-nourished, and in no acute distress. HEAD: Normocephalic EYES: PERRLA, conjunctivae clear ENT: Nares clear, clear discharge. Mucous membranes moist. TM pearly michelle with dull light reflex bilaterally; no tragal tenderness. Oropharynx not erythematous without lesions. Tonsils not enlarged and without exudate, no drooling, no hoarseness, no trismus, uvula midline. NECK: Supple. No lymphadenopathy CHEST: Clear to auscultation, breath sounds equal. No wheezing, rhonchi, rales, or stridor. No respiratory distress, speaks in full sentences. HEART: Regular rate and rhythm. No murmur heard. SKIN: Warm, dry, no rash. NEURO: Alert and oriented x3. PSYCH: Normal mood and affect Course Course Emergency Course: Patient is aware of diagnosis, understands and agrees to treatment plan. Anticipatory guidance given. Patient agrees to follow-up as directed and is aware of reasons to seek care at the emergency department. Portions of this record may have been created with voice recognition software Level of Care: Express Care Visit Vital Signs Vital signs: Reviewed. MDM - URI/Sore Throat MDM Narrative Medical decision making narrative: Differential diagnosis considered: La virus, strep pharyngitis, allergic rhinitis, upper respiratory tract infection, sinusitis, rhinosinusitis, nasopharyngitis. 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
[2021-03-21 13:04] VITALS: BP 131/93; PULSE 93; RESP 16; TEMP 36.8; O2SAT 100
[2021-03-22 21:11] LABS: SARS-CoV-2 RNA PCR Positive
== END 2021-03-21 13:32 | disposition home or self-care (01) ==
PROVIDERS: Emergency Provider Nurse Practitioner
DX: U07.1 COVID-19 (principal)
CPT/HCPCS: 87426; 99213; C9803; G0463; U0003; U0005

== ENCOUNTER 2022-04-22 12:26 | Emergency (ER) | payer OTHER, SELFPAY ==
--- NOTE | 2022-04-22 12:30 | ED.URI ---
HPI - URI/Sore Throat General Chief Complaint: Upper Respiratory Infection Stated Complaint: dizziness,congestion Time Seen by Provider: 04/22/22 12:29 Source: patient Mode of arrival: ambulatory Limitations: no limitations History of Present Illness HPI Narrative: Sebastián is a 37-year-old male patient presenting to the clinic today with complaints dizziness and congestion x1.5 weeks. He denies any fever or chills. States that the congestion has gotten better although he still having some dizziness. States he feels as though the room is spinning. He denies any headache, visual changes, nausea, vomiting, or diarrhea MD elicited complaint: nasal congestion and other (Dizziness) Related Data Allergies Allergy/AdvReac Type Severity Reaction Status Date / Time shrimp Allergy Intermediate SCRATCHY Verified 04/22/22 12:39 THROAT Lobster Allergy Intermediate SCRATCHY Uncoded 04/22/22 12:39 THROAT Review of Systems Review of Systems: Pertinent positives per HPI. Patient denies any fever, chills, rash, headache, visual changes, dizziness, cough, shortness of breath, chest pain, palpitations, nausea, vomiting, diarrhea, constipation, abdominal pain, or any urinary issues. [facility] Past Medical History Medical History (Updated 04/22/22 @ 12:56 by David Morgan APRN) OCD (obsessive compulsive disorder) Surgical History Surgical History History of adenoidectomy History of tonsillectomy Hx laparoscopic cholecystectomy 10/20/19 Family History Family History Mother Family history of hypercholesterolemia Hypertension Diabetes mellitus Father Family history of liver disease Family history of alcoholism Other Family history of allergic disorder Social History Social History Smoking status: Never smoker Alcohol intake: never Substance use: never Gender identity (if verbalized by the patient): Male Spiritual care concerns: No Comments At the time of my signature, I reviewed and agree with the nursing past medical, surgical, social, and family history. There is no relevant family history pertinent to the patient complaint. Exam Narrative: General: Well-developed, well nourished, in no apparent distress Head: Normocephalic, atraumatic Eyes: Pupils equally round and reactive to light bilaterally, EOM intact, sclera and conjunctive clear, no discharge, lids normal Ears: Cerumen impaction in bilateral ear canals, ear irrigation and curette were used to remove the cerumen completely, TMs intact with some fluid noted behind the TMs with mild bulging, ear canals clear, no drainage, grossly hearing normal. Nose: Nares patent, clear nasal discharge, no inflammation, no sinus tenderness. Mouth: Oral pharynx without lesions or masses, good dentition, MMM. Neck: Supple, trachea midline, no enlargement of anterior or posterior cervical nodes, no thyroid masses or goiter palpable. Cardio: Regular rate and rhythm, s1 and s2 normal, no murmur appreciated. Resp: Clear to auscultation bilaterally, no rhonchi, rales, wheezing or rubs Course Course Emergency Course: Portions of this record may have been created with voice recognition software. Level of Care: Express Care Visit Vital Signs Vital signs: Vital signs reviewed Procedures Ear Wax Removal Both Ears: Ear Wax Removal Date: 04/22/22 Results: Re-examined: cerumen removed completely TM Examination: other (Serous otitis) Ear Canal Exam: atraumatic Patient Tolerated Procedure: well Complications: no problems Technique: ear canal irrigated and ear canal curetted MDM - URI/Sore Throat MDM Narrative Medical decision making narrative: At the time of visit patient is resting comfortably on the exam table. Patient has b
== END 2022-04-22 13:10 | disposition home or self-care (01) ==
PROVIDERS: Emergency Provider Nurse Practitioner Family
DX: H69.93 Unspecified Eustachian tube disorder, bilateral (principal); H61.23 Impacted cerumen, bilateral; H65.03 Acute serous otitis media, bilateral
CPT/HCPCS: 69210; 99213; G0463

== ENCOUNTER 2024-05-18 18:24 | Emergency (ER) | payer OTHER, SELFPAY ==
--- NOTE | ~2024-05-18 | XR_ITS ---
CHEST RADIOGRAPH CLINICAL HISTORY: weakness . COMPARISON: None available TECHNIQUE: Single portable view of the chest. FINDINGS The cardiomediastinal silhouette is unremarkable. The lungs are clear. Visualized osseous structures and soft tissues are unremarkable. IMPRESSION: No focal infiltrate or effusion. Reviewed, dictated and finalized at location A.
[2024-05-18 18:47] VITALS: BP 151/98; PULSE 109; RESP 17; TEMP 36.4; O2SAT 100
--- OUTSIDE RECORDS SUMMARY | 2024-05-18 19:13 | XMS_ITS | Referral Summary ---
Author Organization [facility] Address [address] [place] [address] Care Team Providers Care Industrial Hygiene Manager Name Role Phone Unavailable Primary Care Provider Unavailabl e Source Comments [facility],non-owned Affiliates and Associated Physician Practices is amultiple site organization consisting of ambulatory clinics and hospital sitesin [place], [place], [place] and [place]. This disclosure is being madepursuant to the Care Everywhere program and may not contain all information available regarding this patient. Last updated 17.[facility] Allergies Active Allergy Reactions Criticality Noted Date Comments Shellfish Allergy Itching 04/10/2018 Medications * Be aware that medications may not be up to date on this document. Alwaysverify current medications with the patient. Medication Sig Dispensed Refills Start Date End Date Status albuterol HFA (PROVENTIL;VENTOLIN;P ROAIR) 108 (90 BASE) MCG/ACT inhalerIndications:Br onchitis Inhale 2 puffs by mouth every 6 hours as needed 3 Inhaler 3 04/10/2018 Active predniSONE (DELTASONE) 20 MG tabletIndications:Bro nchitis Take 1 tablet by mouth 2 times daily 14 tablet 04/10/2018 Active Active Problems No known active problems Social History Tobacco Use Types Packs/Day Years Used Date Smoking Tobacco: Never Smokeless Tobacco: Never Sex and Gender Information Value Date Recorded Sex Assigned at Not on file Gender Identity Not on file Sexual Orientation Not on file Last Filed Vital Signs Vital Sign Reading Time Taken Comments Blood Pressure 120/76 04/10/2018 11:36 AM PINION STAKER Pulse 79 04/10/2018 11:36 AM PINION STAKER Temperature 38.1 C (100.5 F) 04/10/2018 11:36 AM PINION STAKER Respiratory Rate 16 04/10/2018 11:36 AM PINION STAKER Oxygen Saturation 99% 04/10/2018 11:36 AM PINION STAKER Inhaled Oxygen Concentration - - Weight 95.3 kg (210 lb) 04/10/2018 11:36 AM PINION STAKER Height 172.7 cm (5' 8 ) 04/10/2018 11:36 AM PINION STAKER Body Mass Index 31.93 04/10/2018 11:36 AM PINION STAKER Plan of Treatment Not on file
--- OUTSIDE RECORDS SUMMARY | 2024-05-18 19:13 | XMS_ITS | Clinical Summary ---
Author Organization [facility] Address [address] [place] [address] Care Team Providers Care Rn Research Name Role Phone Unavailable Primary Care Provider Unavailabl e Source Comments [facility],non-owned Affiliates and Associated Physician Practices is amultiple site organization consisting of ambulatory clinics and hospital sitesin [place], [place], [place] and [place]. This disclosure is being madepursuant to the Care Everywhere program and may not contain all information available regarding this patient. Last updated 17.[facility] Allergies Active Allergy Reactions Criticality Noted Date [...] Active Active Problems No known active problems Family History Medical History Relation Name Comments Diabetes - Type 2 Mother Relation Name Status Comments Mother Social History Tobacco Use Types Packs/Day Years Used Date Smoking Tobacco: Never Smokeless Tobacco: Never Sex and Gender Information Value Date Recorded Sex Assigned at Not on file Gender Identity Not on file Sexual Orientation Not on file Last Filed Vital Signs Vital Sign Reading Time Taken Comments Blood Pressure 120/76 04/10/2018 11:36 AM HARDSCAPE FOREMAN Pulse 79 04/10/2018 11:36 AM HARDSCAPE FOREMAN Temperature 38.1 C (100.5 F) 04/10/2018 11:36 AM HARDSCAPE FOREMAN Respiratory Rate 16 04/10/2018 11:36 AM HARDSCAPE FOREMAN Oxygen Saturation 99% 04/10/2018 11:36 AM HARDSCAPE FOREMAN Inhaled Oxygen Concentration - - Weight 95.3 kg (210 lb) 04/10/2018 11:36 AM HARDSCAPE FOREMAN Height 172.7 cm (5' 8 ) 04/10/2018 11:36 AM HARDSCAPE FOREMAN Body Mass Index 31.93 04/10/2018 11:36 AM HARDSCAPE FOREMAN Plan of Treatment Health Maintenance Due Date Last Done Comments LIPID TESTING 1984 HIV SCREENING 02/03/1999 HEPATITIS C SCREENING 01/30/2002 DTAP/TDAP/TD VACCINES (1 - Tdap) 02/03/2003 HEPATITIS B VACCINE (1 of 3 - 19+ 3-dose series) 02/03/2003 COVID-19 VACCINE ( - 2023-2 5 season) 2023 INFLUENZA VACCINE (#1) 2023 DEPRESSION SCREENING 03/04/2024 ZOSTER VACCINE (1 of 2) 02/03/2034 HIB VACCINE Aged Out No longer eligi ble based on patient's age to complete this topic HPV VACCINE Aged Out No longer eligi ble based on patient's age to complete this topic MENINGOCOCCAL (Group B) VACC INE SHARED DECISION-MAKING Aged Out No longer eligibl e based on patient's age to complete this topic MENINGOCOCCAL GROUPS A/C/Y/W VACCINE Aged Out No longer eligible b ased on patient's age to complete this topic PNEUMOCOCCAL VACCINE Aged Out No long er eligible based on patient's age to complete this topic
--- OUTSIDE RECORDS SUMMARY | 2024-05-18 19:13 | XMS_ITS | Clinical Summary ---
Author Organization [facility] [employer] [place] Address [address] [address] Care Team Providers Care Typing Office Worker Name Role Phone Albania Maciel MD Primary Care Provider [phone] Allergies Active Allergy Reactions Criticality Noted Date Comments Shellfish Containing Products Anaphylaxis,Itching High 04/10/2018 Medications cholestyramine, with sugar, (QUESTRAN) 4 gram Powder in PacketIndication s:Dumping syndrome Take 1 Packet by mouth daily. To reduce diarrhea issues. 30 Packet 4 Active FLUoxetine (PROzac) 20 mg capsuleIndicatio ns:Mixed anxiety and depressive disorder,Obsessi ve-compulsive disorder, unspecified type TAKE 3 CAPSULES (60 MG) BY MOUTH DAILY. DX CODES: F41.8 300.4 270 Capsule 1 4 Active ondansetron (ZOFRAN ODT) 4 mg Tablet, Rapid DissolveIndicati ons:Nausea,Fatig ue, unspecified type Take 1 Tablet (4 mg) by mouth every 8 hours as needed for Nausea/Emesis . Dissolve tablet on top of tongue, then swallow with saliva. 10 Tablet 5 Active Active Problems Problem Noted Date Diagnosed Date Mixed anxiety and depressive disorder 01/22/2024 Vitamin D deficiency 08/17/2022 Vitamin B 12 deficiency 08/17/2022 Mixed hyperlipidemia 08/17/2022 Overview (08/21/2022): 08/2022 - refer to water treatment plant repairer. Started cholestyramine for GB issues. Repeat labs in Sept. Post-cholecystectomy syndrome - diarrhea 023 Overview (08/21/2022): 08/2022 started cholestyramine Encounters Date Type Department Care Team Description 05/15/2024 Chart Note [facility] [employer] [place] [address] [place] [address] Gunaako Sparrow 05/12/2024 External Device Data STL ABSTRACTION Provider, Abstract 05/12/2024 External Device Data STL ABSTRACTION Provider, Abstract 05/11/2024 2:30 PM CDT Office Visit [facility] at [address] [phone] Awa Worthy, GUI Nausea (Primary Dx); Lightheadedness; Fatigue, unspecified type 04/28/2024 External Device Data STL ABSTRACTION Provider, Abstract 04/14/2024 External Device Data STL ABSTRACTION Provider, Abstract 03/30/2024 3:00 PM LEGAL BILLING SPECIALIST Office Visit [facility] at [place] [address] [facility] [place] [address] Guanako Sparrow Mixed anxiety and depressive disorder (Primary Dx) 03/26/2024 External Device Data STL ABSTRACTION Provider, Abstract 03/25/2024 External Device Data STL ABSTRACTION Provider, Abstract 03/24/2024 External Device Data STL ABSTRACTION Provider, Abstract 03/20/2024 Chart Note [facility] [place] [address] [place] [address] Guanako Sparrow 03/06/2024 Telephone [facility] [place] [address] [place] [phone] Guanako Sparrow CoCM Bhavna Appt (2nd contact to change 03/09/24 appointment to video visit or reschedule to a different day. Left message.) 03/05/2024 Telephone [facility] [employer] [facility] [address] [place] [phone] Guanako Sparrow CoCM Bhavna Appt (1st contact to change appointme scheduled on 03/09/24 to video visit or change dates, due to expected winter storm.) 02/19/2024 2:30 PM LEGAL BILLING SPECIALIST Office Visit [facility] [employer] [place] [address] [place] [address] Albania Maciel MD Mixed anxiety and depressive disorder (Primary Dx); Obsessive-compulsiv e disorder, unspecified type; Vitamin D deficiency; Vitamin B 12 deficiency; Screening for condition 02/19/2024 Refill [facility] [employer] [place] [address] [place] [address] Albania Maciel MD Mixed anxiety and depressive disorder; Obsessive-compulsiv e disorder, unspecified type from Last 3 Months Immunizations Immunization Administration Dates Next Due (ADACEL/BOOSTRIX)(10 YR UP) TDAP VACCINE, 0.5ML, IM 08/17/2022 INFLUENZA VACCINE QUADRIVALENT 6 MOS UP PF IM INFLUENZA VACCINE TRIVALENT SPLIT VIRUS, (6 MOS UP), 0.5ML (PF), IM 12/25/2023 Family History Medical History Relation Name Comments Asthma Father Han Denis Liver Disease Father Han Denis alcohol abuse related disease Diabetes Mother Judy Denis Hypertension Mother Judy Denis Kidney Stones Mother Judy Denis Kidney Disease Paternal Grandmother Devika Denis Relation Name Status Comments Father Han Denis Maternal Grandfather Maternal Grandmother Mother Judy Denis Alive Paternal Grandfather Paternal Grandmother Devika [facility] Social History Tobacco Use Types Packs/Day Years Used Date Smoking Tobacco: Never Tobacco Cessation:Counseling Given: Not Answered Alcohol Use Standard Drinks/Week Comments Never 0 (1 standard drink = 0.6 oz pur e alcohol) Sex and Gender Information Value Date Recorded Sex Assigned at Not on file Legal Sex Male 7:22 AM LEGAL BILLING SPECIALIST Gender Identity Not on file Sexual Orientation Not on file Last Filed Vital Signs Vital Sign Reading Time Taken Comments Blood Pressure 120/80 05/11/2024 2:05 PM CDT Pulse 78 05/11/2024 2:05 PM CDT Temperature 36.6 C (97.9 F) 05/11/2024 2:05 PM CDT Respiratory Rate 18 02/19/2024 2:12 PM LEGAL BILLING SPECIALIST Oxygen Saturation 98% 05/11/2024 2:05 PM CDT Inhaled Oxygen Concentration - - Weight 93 kg (205 lb) 05/11/2024 2:05 PM CDT Height 172.7 cm (5' 8 ) 05/11/2024 2:05 PM CDT Body Mass Index 31.17 05/11/2024 2:05 PM CDT Plan of Treatment Upcoming Encounters Date Type Department Care Team (Late st Contact Info) Description 05/25/2024 2:00 PM CDT Office Visit [facility] [address] [place] [address] 05/29/2024 2:00 PM CDT Office Visit [facility] [employer] [facility] [address] [place] [address] Albania Maciel MD [address] [place] [address] 06/12/2024 10:20 AM CDT Clinical Support [facility] [employer] [address] [address] Health Maintenance Due Date Last Done Comments HEPATITIS B VACCINES (1 of 3 - 19+ 3-dose series) 02/03/2003 Preventative Visit- Commercial 03/04/2024 08/17/2022 Pre-Diabetes and Diabetes Screening 02/02/2025 02/02/2022 DTAP/TDAP/TD VACCINES (2 - T d or Tdap) 08/17/2032 08/17/2022 INFLUENZA VACCINE Completed 12/25/2023, 01/16/2022 HPV VACCINES Aged Out No longer eligi ble based on patient's age to complete this topic Procedures Procedure Name Priority Date/Time Associated Diagnosis Comments POC INFLUENZA A/B AND COVID-19 ANTIGENS Routine 05/11/2024 3:29 PM CDT Nausea Fatigue, unspecified type HEMOGLOBIN A1C Routine 02/02/2022 8:21 AM LEGAL BILLING SPECIALIST Encounter for routine adult health examination with abnormal findings from Last 3 Months or Most Recently Relevant to Health Maintenance Results * POC INFLUENZA A/B AND COVID-19 ANTIGENS (05/11/2024 3:29 PM CDT) INFLUENZA A AG POC Not Detected Not Detected [facility] [place] INFLUENZA B AG POC Not Detected Not Detected [facility] COVID-19 ANTIGEN POC Presumptively Negative Presumptively Negative [facility] INTERNAL KIT QC POC Pass Pass [facility] MO KIT LOT NUMBER POC 10/20/2024 [facility] [place] KIT EXP DATE POC 10/20/24 [facility] [place] Upper Respiratory 05/11/2024 3:29 PM CDT Awa Worthy NP POINT OF CARE TESTING Fin al Result [facility] CLIA# [id number] [address] [place] [address] * HEMOGLOBIN A1C (02/02/2022 8:21 AM LEGAL BILLING SPECIALIST) HEMOGLOBIN A1C 5.1 <5.7 % of total Hgb [facility] Comment: For the purpose of screening for the presence of diabetes: <5.7% Consistent with the absence of diabetes 5.7-6.4% Consistent with increased risk for diabetes (prediabetes) > or =6.5% Consistent with diabetes This assay result is consistent with a decreased risk of diabetes. Currently, no consensus exists regarding use of hemoglobin A1c for diagnosis of diabetes in children. According to [place] Diabetes Association (ADA) guidelines, hemoglobin A1c <7.0% represents optimal control in non- diabetic patients. Different metrics may apply to specific patient populations. Standards of Medical Care in Diabetes(ADA). ESTIMATED AVERAGE GLUCOSE (MG/DL) 100 mg/dL [facility] ESTIMATED AVERAGE GLUCOSE (MMOL/L) 5.5 mmol/L [facility] Comment: Test Performed at: [facility] [address] [place] [address] Tiago Pepe D.O., MPH Blood 02/02/2022 8:21 AM LEGAL BILLING SPECIALIST 02/03/2022 4:46 AM LEGAL BILLING SPECIALIST Helen Roe TRACE EVIDENCE TECHNICIAN CHEMISTRY ORDERABLES F inal Result [facility] [phone] [facility] [address] [place] [address] from Last 3 Months or Most Recently Relevant to Health Maintenance Insurance ALLEGIANCE OPEN ACCESS ALLEGIANCE OPEN ACCESS Care Teams Typing Office Worker Relationship Specialty Start Date End Date Albania Maciel MD [address] [place] [address] [place] [address] PCP - General Internal Medicine 08/27/23
--- OUTSIDE RECORDS SUMMARY | 2024-05-18 19:13 | XMS_ITS | Encounter Summary ---
Author Organization [facility] Address [address] [place] [address] Care Team Providers Care Roto Rooter Operator Name Role Phone Albania Macile MD Primary Care Provider [phone] Encounter Details Date Type Department Care Team (Late Contact Info) Description 05/15/2024 Chart Note [facility] at Work [employer] [place] [address] [place] [address] Guanako Sparrow [address] [place] [address] Social History Tobacco Use Types Packs/Day Years Used Date Smoking Tobacco: Never Alcohol Use Standard Drinks/Week Comments Never 0 (1 standard drink = 0.6 oz pur e alcohol) Sex and Gender Information Value Date Recorded Sex Assigned at Not on file Legal Sex Male 7:22 AM DIP BRAZIER Gender Identity Not on file Sexual Orientation Not on file documented as of this encounter Progress Notes * Guanako Sparrow - 05/18/2024 8:41 AM CDT [facility] Psychiatric Staffing Consult and Review The consulting psychiatrist and behavioral health care managers met on 05/15/2024 for Sebastián. The [facility] team discussed Sebastián diagnosis, goals, progress being made, additional treatment options and anycurrent issues. documented in this encounter Plan of Treatment Upcoming Encounters Date Type Department Care Team (Late Contact Info) Description 05/25/2024 2:00 PM CDT Office Visit [facility] at [facility] [employer] [facility] [address] [place] [address] 05/29/2024 2:00 PM CDT Office Visit [facility] at Work [employer] [place] [address] [place] [address] Albania Maciel MD [address] [place] [address] 06/12/2024 10:20 AM CDT Clinical Support [facility] at [facility] [employer] [address] [phone] documented as of this encounter Visit Diagnoses Not on filedocumented in this encounter Additional Health Concerns Assessment Noted Time PHQ-9 Depression Total Score: 2 03/30/19 3:00 PM DIP BRAZIER documented as of this encounter Care Teams Roto Rooter Operator Relationship Specialty Start Date End Date Albania Maciel MD [address] [place] [phone] PCP - General Internal Medicine 08/27/23 documented as of this encounter
--- OUTSIDE RECORDS SUMMARY | 2024-05-18 19:13 | XMS_ITS | Patient Health Summary ---
Author Organization [facility] Address [address] [place] [address] Care Team Providers Care Sewing Machine Bobbin Winder Name Role Phone Unavailable Primary Care Provider Unavailabl e Note from [facility],non-owned Affiliates and Associated Physician Practices is amultiple site organization consisting of ambulatory clinics and hospital sitesin [place], [place], [place] and [place]. This disclosure is being madepursuant to the Care Everywhere program and may not contain all information available regarding this patient. Last updated 17.[facility] Allergies * Shellfish Allergy(Itching) Medications * Be aware that medications may not be up to date on this document. Alwaysverify current medications with the patient. * albuterol HFA (PROVENTIL;VENTOLIN;PROAIR) 108 (90 BASE) MCG/ACT inhaler (Started 04/10/2018) Inhale 2 puffs by mouth every 6 hours as needed 3 refills remaining * predniSONE (DELTASONE) 20 MG tablet(Started 04/10/2018) Take 1 tablet by mouth 2 times daily Active Problems No known active problems Social History Tobacco Use Types Packs/Day Years Used Date Smoking Tobacco: Never Smokeless Tobacco: Never Sex and Gender Information Value Date Recorded Sex Assigned at Not on file Gender Identity Not on file Sexual Orientation Not on file Last Filed Vital Signs Vital Sign Reading Time Taken Comments Blood Pressure 120/76 04/10/2018 11:36 AM TERMINAL BLOCK ASSEMBLER Pulse 79 04/10/2018 11:36 AM TERMINAL BLOCK ASSEMBLER Temperature 38.1 C (100.5 F) 04/10/2018 11:36 AM TERMINAL BLOCK ASSEMBLER Respiratory Rate 16 04/10/2018 11:36 AM TERMINAL BLOCK ASSEMBLER Oxygen Saturation 99% 04/10/2018 11:36 AM TERMINAL BLOCK ASSEMBLER Inhaled Oxygen Concentration - - Weight 95.3 kg (210 lb) 04/10/2018 11:36 AM TERMINAL BLOCK ASSEMBLER Height 172.7 cm (5' 8 ) 04/10/2018 11:36 AM TERMINAL BLOCK ASSEMBLER Body Mass Index 31.93 04/10/2018 11:36 AM TERMINAL BLOCK ASSEMBLER Procedures * INFLUENZA A+B - POINT OF CARE (AMB)(Performed 04/10/2018) Performed for Bronchitis Results * INFLUENZA A+B - POINT OF CARE (AMB) (04/10/2018 11:47 AM TERMINAL BLOCK ASSEMBLER) Influenza A Antigen Rapid Negative Negative Influenza B Antigen Rapid Negative Negative Influenza Internal Control positive NEGATIVE - POSITIVE Influenza Lot Number [id number] Influenza Expiration Date Other NASOPHARYNGEAL SWAB / Unknown 04/10/2018 11:47 AM TERMINAL BLOCK ASSEMBLER Anthony Healy CABLE TV INSTALLER-SUPERVISOR CELL ROOM LAB - POINT OF CARE ORDERABLES
[2024-05-18 23:11] VITALS: BP 142/101; PULSE 93; RESP 19; O2SAT 100
--- NOTE | 2024-05-18 23:38 | ECG_ITS ---
Test Date: 2024-05-18 23:51:20 Measurements Intervals [place] Rate: 100 P: 41 TN: 117 QRS: -1 QRSD: 98 T: 20 QT: 372 QTc: 481 Interpretive Statements SINUS TACHYCARDIA WITH SHORT TN INTERVAL NONSPECIFIC ST AND T-WAVE ABNORMALITY No previous ECG available for comparison Electronically Signed On 05-19-2024 16:48:28 CDT by Myles Matta M.D.
[2024-05-18 23:59] VITALS: RESP 17
[2024-05-19] VITALS: BP 149/99; PULSE 73; RESP 17; O2SAT 98
[2024-05-19] MEDS: SODIUM CHLORIDE 0.9% IV 1,000 ML 999 ML IV CONT ×3 (00:03→02:59)
[2024-05-19] MEDS: ONDANSETRON INJ 4 MG/2 ML VIAL IV PUSH (00:03)
--- OUTSIDE RECORDS SUMMARY | 2024-05-19 00:06 | XMS_ITS | Encounter Summary ---
Author Organization [facility] Address [address] [place] [address] Care Team Providers Care Starch And Prosize Mixer Name Role Phone [place]ia Maciel MD Primary Care Provider [phone] Encounter Details Date Type Department Care Team (Late Contact Info) Description 05/15/2024 Chart Note [facility] at Work [employer] [place] [address] [place] [address] Guanako Sparrow [address] [place] [address] Social History Tobacco Use Types Packs/Day Years Used Date Smoking Tobacco: Never Alcohol Use Standard Drinks/Week Comments Never 0 (1 standard drink = 0.6 oz pur e alcohol) Sex and Gender Information Value Date Recorded Sex Assigned at Not on file Legal Sex Male 7:22 AM WAVE GUIDE ASSEMBLER Gender Identity Not on file Sexual Orientation Not on file documented as of this encounter Progress Notes * Guanako Sparrow - 05/18/2024 8:41 AM CDT [facility] Psychiatric Staffing Consult and Review The consulting psychiatrist and behavioral health care managers met on 05/15/2024 for Sebastián. The [facility] team discussed Sebastián diagnosis, goals, progress being made, additional treatment options and anycurrent issues. documented in this encounter Plan of Treatment Upcoming Encounters Date Type Department Care Team (Late Contact Info) Description 05/25/2024 2:00 PM CDT Office Visit [facility] at [facility] [employer] [facility] [address] [place] [phone] 05/29/2024 2:00 PM CDT Office Visit [facility] at Work [employer] [place] [address] [place] [address] Albania Maciel MD [address] [place] [address] 06/12/2024 10:20 AM CDT Clinical Support [facility] at [facility] [employer] [address] [phone] documented as of this encounter Visit Diagnoses Not on filedocumented in this encounter Additional Health Concerns Assessment Noted Time PHQ-9 Depression Total Score: 2 03/30/19 3:00 PM WAVE GUIDE ASSEMBLER documented as of this encounter Care Teams Starch And Prosize Mixer Relationship Specialty Start Date End Date Albania Maciel MD [address] [place] [phone] PCP - General Internal Medicine 08/27/23 documented as of this encounter
--- OUTSIDE RECORDS SUMMARY | 2024-05-19 00:06 | XMS_ITS | Referral Summary ---
Author Organization [facility] [employer] Address [address] [place] [address] Care Team Providers Care Extrusion Press Operator Name Role Phone Unavailable Primary Care Provider Unavailabl e Source Comments [facility],non-owned Affiliates and Associated Physician Practices is amultiple site organization consisting of ambulatory clinics and hospital sitesin [place], [place], [place] and [place]. This disclosure is being madepursuant to the Care Everywhere program and may not contain all information available regarding this patient. Last updated 17.[facility] [employer] Allergies Active Allergy Reactions Criticality Noted Date [...] Comments Blood Pressure 120/76 04/10/2018 11:36 AM CONTINUOUS IMPROVEMENT ENGINEER Pulse 79 04/10/2018 11:36 AM CONTINUOUS IMPROVEMENT ENGINEER Temperature 38.1 C (100.5 F) 04/10/2018 11:36 AM CONTINUOUS IMPROVEMENT ENGINEER Respiratory Rate 16 04/10/2018 11:36 AM CONTINUOUS IMPROVEMENT ENGINEER Oxygen Saturation 99% 04/10/2018 11:36 AM CONTINUOUS IMPROVEMENT ENGINEER Inhaled Oxygen Concentration - - Weight 95.3 kg (210 lb) 04/10/2018 11:36 AM CONTINUOUS IMPROVEMENT ENGINEER Height 172.7 cm (5' 8 ) 04/10/2018 11:36 AM CONTINUOUS IMPROVEMENT ENGINEER Body Mass Index 31.93 04/10/2018 11:36 AM CONTINUOUS IMPROVEMENT ENGINEER Plan of Treatment Not on file
--- OUTSIDE RECORDS SUMMARY | 2024-05-19 00:06 | XMS_ITS | Patient Health Summary ---
Author Organization [facility] Address [address] [place] [address] Care Team Providers Care Print Shop Assistant Name Role Phone Unavailable Primary Care Provider Unavailabl e Note from [facility],non-owned Affiliates and Associated Physician Practices is amultiple site organization consisting of ambulatory clinics and hospital sitesin [place], [place], [place] and [place]. This disclosure is being madepursuant to the Care Everywhere program and may not contain all information available regarding this patient. Last updated 17.[facility] Allergies * Shellfish Allergy(Itching) Medications [...] Comments Blood Pressure 120/76 04/10/2018 11:36 AM PATTERN WORKER Pulse 79 04/10/2018 11:36 AM PATTERN WORKER Temperature 38.1 C (100.5 F) 04/10/2018 11:36 AM PATTERN WORKER Respiratory Rate 16 04/10/2018 11:36 AM PATTERN WORKER Oxygen Saturation 99% 04/10/2018 11:36 AM PATTERN WORKER Inhaled Oxygen Concentration - - Weight 95.3 kg (210 lb) 04/10/2018 11:36 AM PATTERN WORKER Height 172.7 cm (5' 8 ) 04/10/2018 11:36 AM PATTERN WORKER Body Mass Index 31.93 04/10/2018 11:36 AM PATTERN WORKER Procedures * INFLUENZA A+B - POINT OF CARE (AMB)(Performed 04/10/2018) Performed for Bronchitis Results * INFLUENZA A+B - POINT OF CARE (AMB) (04/10/2018 11:47 AM PATTERN WORKER) Influenza A Antigen Rapid Negative Negative Influenza B Antigen Rapid Negative Negative Influenza Internal Control positive NEGATIVE - POSITIVE Influenza Lot Number [id number] Influenza Expiration Date Other NASOPHARYNGEAL SWAB / Unknown 04/10/2018 11:47 AM PATTERN WORKER Anthony Healy FIELD KILN BURNER-HOUSE COORDINATOR LAB - POINT OF CARE ORDERABLES
--- OUTSIDE RECORDS SUMMARY | 2024-05-19 00:06 | XMS_ITS | Clinical Summary ---
Author Organization [facility] [employer] [place] Address [address] [address] Care Team Providers Care Staff Sonographer Name Role Phone [place] Maciel MD Primary Care Provider [phone] Allergies Active Allergy Reactions Criticality Noted Date [...] 08/17/2022 Overview (08/21/2022): 08/2022 - refer to construction equipment mechanic helper. Started cholestyramine for GB issues. Repeat labs in Sept. Post-cholecystectomy syndrome - diarrhea 023 Overview (08/21/2022): 08/2022 started cholestyramine Encounters Date Type Department Care Team Description 05/15/[address] [facility] [email or web address] [place] [address] [place] [address] Guanako Sparrow 05/12/2024 External Device Data ST[place] ABSTRACTION Provider, Abstract 05/12/2024 External Device Data STL ABSTRACTION Provider, Abstract 05/11/2024 2:30 PM CDT Office Visit [facility] [address] [id number] Awa Worthy, GUI Nausea (Primary Dx); Lightheadedness; Fatigue, unspecified type 04/28/2024 External Device Data STL ABSTRACTION Provider, Abstract 04/14/2024 External Device Data STL ABSTRACTION Provider, Abstract 03/30/2024 3:00 PM DEPUTY SHERIFF CHIEF Office Visit [facility] [place] [address] [place] [address] Guanako Sparrow Mixed anxiety and depressive disorder (Primary Dx) 03/26/2024 External Device Data STL ABSTRACTION Provider, Abstract 03/25/2024 External Device Data STL ABSTRACTION Provider, Abstract 03/24/2024 External Device Data STL ABSTRACTION Provider, Abstract 03/20/[address] [facility] [place] [address] [place] [address] Guanako Sparrow 03/06/[address] [facility] [place] [address] [place] [phone] Guanako Sparrow CoCM Bhavna Appt (2nd contact to change 03/09/24 appointment to video visit or reschedule to a different day. Left message.) 03/05/[address] [facility] [email or web address] [facility] [address] [place] [phone] Guanako Sparrow CoCM Bhavna Appt (1st contact to change appointme scheduled on 03/09/24 to video visit or change dates, due to expected winter storm.) 02/19/2024 2:30 PM DEPUTY SHERIFF CHIEF Office Visit [facility] [place] [address] [place] [address] [place]ia Maciel MD Mixed anxiety and depressive disorder (Primary Dx); Obsessive-compulsiv e disorder, unspecified type; Vitamin D deficiency; Vitamin B 12 deficiency; Screening for condition 02/19/[address] [facility] [place] [address] [place] [address] Albania Maciel MD Mixed anxiety [...] Denis Alive Paternal Grandfather Paternal Grandmother Devika [facility] Social History Tobacco Use Types Packs/Day Years Used Date Smoking Tobacco: Never Tobacco Cessation:Counseling Given: Not Answered Alcohol Use Standard Drinks/Week Comments Never 0 (1 standard drink = 0.6 oz pur e alcohol) Sex and Gender Information Value Date Recorded Sex Assigned at Not on file Legal Sex Male 7:22 AM DEPUTY SHERIFF CHIEF Gender Identity Not on file Sexual Orientation Not on file Last Filed Vital Signs Vital Sign Reading Time Taken Comments Blood Pressure 120/80 05/11/2024 2:05 PM CDT Pulse 78 05/11/2024 2:05 PM CDT Temperature 36.6 C (97.9 F) 05/11/2024 2:05 PM CDT Respiratory Rate 18 02/19/2024 2:12 PM DEPUTY SHERIFF CHIEF Oxygen Saturation 98% 05/11/2024 2:05 PM CDT Inhaled Oxygen Concentration - - Weight 93 kg (205 lb) 05/11/2024 2:05 PM CDT Height 172.7 cm (5' 8 ) 05/11/2024 2:05 PM CDT Body Mass Index 31.17 05/11/2024 2:05 PM CDT Plan of Treatment Upcoming Encounters Date Type Department Care Team (Late st Contact Info) Description 05/25/2024 2:00 PM CDT Office Visit [facility] [address] [place] [address] 05/29/2024 2:00 PM CDT Office Visit [facility] [address] [place] [address] Albania Maciel MD [address] [place] [address] 06/12/2024 10:20 AM CDT Clinical Support [facility] [place] [address] [address] Health Maintenance Due Date Last [...] type HEMOGLOBIN A1C Routine 02/02/2022 8:21 AM DEPUTY SHERIFF CHIEF Encounter for routine adult health examination with abnormal findings from Last 3 Months or Most Recently Relevant to Health Maintenance Results * POC INFLUENZA A/B AND COVID-19 ANTIGENS (05/11/2024 3:29 PM CDT) INFLUENZA A AG POC Not Detected Not Detected [facility] MO INFLUENZA B AG POC Not Detected Not Detected [facility] COVID-19 ANTIGEN POC Presumptively Negative Presumptively Negative [facility] INTERNAL KIT QC POC Pass Pass [facility] MO KIT LOT NUMBER POC 10/20/2024 [facility] MO KIT EXP DATE POC 10/20/24 [facility] MO Upper Respiratory 05/11/2024 3:29 PM CDT Awa Worthy NP POINT OF CARE TESTING Fin al Result [facility] CLIA# [id number] [address] [place] [address] * HEMOGLOBIN A1C (02/02/2022 8:21 AM DEPUTY SHERIFF CHIEF) HEMOGLOBIN A1C 5.1 <5.7 % of total Hgb [facility] Comment: For the purpose of screening for the presence of diabetes: <5.7% Consistent with the absence of diabetes 5.7-6.4% Consistent with increased risk for diabetes (prediabetes) > or =6.5% Consistent with diabetes This assay result is consistent with a decreased risk of diabetes. Currently, no consensus exists regarding use of hemoglobin A1c for diagnosis of diabetes in children. According to [place] Diabetes Association (ADA) guidelines, hemoglobin A1c <7.0% represents optimal control in non- diabetic patients. Different metrics may apply to specific patient populations. Standards of Medical Care in Diabetes(ADA). ESTIMATED AVERAGE GLUCOSE (MG/DL) 100 mg/dL [facility] ESTIMATED AVERAGE GLUCOSE (MMOL/L) 5.5 mmol/L [facility] Comment: Test Performed at: [facility] [address] [place] [address] Tiago Pepe D.O., MPH Blood 02/02/2022 8:21 AM DEPUTY SHERIFF CHIEF 02/03/2022 4:46 AM DEPUTY SHERIFF CHIEF Helen Roe THERAPEUTIC PROGRAM WORKER CHEMISTRY ORDERABLES F inal Result [facility] [phone] [facility] [address] [place] [address] from Last 3 Months or Most Recently Relevant to Health Maintenance Insurance ALLEGIANCE OPEN ACCESS ALLEGIANCE OPEN ACCESS Care Teams Staff Sonographer Relationship Specialty Start Date End Date Albania Maciel MD [address] [place] [address] [place] [address] PCP - General Internal Medicine 08/27/23
--- OUTSIDE RECORDS SUMMARY | 2024-05-19 00:06 | XMS_ITS | Clinical Summary ---
Author Organization [facility] Address [address] [place] [address] Care Team Providers Care Fuel Oil Truck Driver Name Role Phone Unavailable Primary Care Provider Unavailabl e Source Comments [facility],non-owned Affiliates and Associated Physician Practices is amultiple site organization consisting of ambulatory clinics and hospital sitesin [place], [place], [place] and [place]. This disclosure is being madepursuant to the Care Everywhere program and may not contain all information available regarding this patient. Last updated 17.[facility] Allergies Active Allergy Reactions Criticality Noted Date [...] Comments Blood Pressure 120/76 04/10/2018 11:36 AM SAFETY INSPECTOR Pulse 79 04/10/2018 11:36 AM SAFETY INSPECTOR Temperature 38.1 C (100.5 F) 04/10/2018 11:36 AM SAFETY INSPECTOR Respiratory Rate 16 04/10/2018 11:36 AM SAFETY INSPECTOR Oxygen Saturation 99% 04/10/2018 11:36 AM SAFETY INSPECTOR Inhaled Oxygen Concentration - - Weight 95.3 kg (210 lb) 04/10/2018 11:36 AM SAFETY INSPECTOR Height 172.7 cm (5' 8 ) 04/10/2018 11:36 AM SAFETY INSPECTOR Body Mass Index 31.93 04/10/2018 11:36 AM SAFETY INSPECTOR Plan of Treatment Health Maintenance Due Date [...]
[2024-05-19 00:14] LABS: Basophils Absolute Auto 0.1 K/mm3 (0.0-0.1); Basophils Percent Auto 0.6 % (0.2-1.2); Eosinophils Absolute Auto 0.1 K/mm3 (0-0.3); Eosinophils Percent Auto 0.8 % (0-4.4); Hemoglobin 16.8 g/dL (14.0-18.0); Immature Granulocyte Absolute 0.05 K/mm3 (0.00-0.031); Immature Granulocyte Percent A 0.4 % (0-0.5); Lymphocytes Percent Auto 13.1 % (18.3-44.2); Mean Corpuscular Hemoglobin 30.9 pg (26-34); Mean Corpuscular Volume 88.2 fl (80-100); Mean Platelet Volume 9.7 fl (7.4-10.4); Monocytes Absolute Auto 0.8 K/mm3 (0.1-0.6); Monocytes Percent Auto 7.1 % (2.6-8.5); Neutrophils Absolute Auto 8.9 K/mm3 (1.3-6.7); Platelet Count Result 317 k/mm3 (150-375); Red Blood Count 5.44 M/mm3 (4.6-6.20); Red Cell Distribution Width 12.3 % (11.5-14.5); White Blood Count 11.4 K/mm3 (4.5-10.0)
[2024-05-19 00:34] LABS: Lactic Acid Reflex 2.6 mmol/L (0.7-2.0)
[2024-05-19 00:36] LABS: Alanine Aminotransferase 54 U/L (6-50); Albumin Level 5.2 g/dL (3.5-5.1); Alkaline Phosphatase 103 U/L (38-126); Anion Gap 18 mmol/L (4-12); Aspartate Amino Transferase 31 U/L (17-59); Bilirubin,Total 1.4 mg/dL (0.2-1.3); Blood Urea Nitrogen 12 mg/dL (9-20); Carbon Dioxide 15 mmol/L (22-30); Chloride 107 mmol/L (98-107); Estimated CRCL calculation 97 ml/min; Estimated Glomerular Filt Rate > 60; Glucose 108 mg/dL (65-110); Lipase 111 U/L (23-300); Magnesium 2.2 mg/dL (1.6-2.3); Potassium 3.6 mmol/L (3.4-5.0); Sodium 140 mmol/L (137-145)
[2024-05-19 00:47] LABS: Troponin I < 0.012 ng/mL (0.000-0.034)
[2024-05-19 00:49] LABS: Influenza A QL RT-PCR Negative (Negative); Influenza B QL RT-PCR Negative (Negative); RSV RNA, RT-PCR Negative (Negative); SARS-CoV-2 RNA PCR Negative (Negative)
--- NOTE | 2024-05-19 01:12 | ED_ITS ---
HPI - General Adult General Chief complaint: Unspecified Stated complaint: shaky/lightheaded Time Seen by Provider: 05/18/24 23:30 History of Present Illness HPI narrative: Patient is a 39-year-old gentleman presents emergency department chief complaint of feeling lightheaded shaking patient states he has also been having nausea vomiting reports that recently was checked for COVID flu that was negative. Patient reports no other sick contacts at home Related Data Allergies Allergy/AdvReac Type Severity Reaction Status Date / Time shrimp Allergy Intermediate SCRATCHY Verified 04/22/22 12:39 THROAT Lobster Allergy Intermediate SCRATCHY Uncoded 04/22/22 12:39 THROAT Review of Systems 2 Review of Systems: A 10 system review of systems was completed on the patient and is negative except for what is stated in the HPI. Nursing and ancillary documentation was reviewed. [facility] Past Medical History Medical History (Updated 05/19/24 @ 03:16 by Tevin Harden MD) OCD (obsessive compulsive disorder) Surgical History Surgical History Hx laparoscopic cholecystectomy 10/20/19 History of adenoidectomy History of tonsillectomy Family History Family History Mother Family history of hypercholesterolemia Hypertension Diabetes mellitus Father Family history of liver disease Family history of alcoholism Other Family history of allergic disorder Social History Social History Smoking status: Never smoker Alcohol intake: never Substance use: never Gender identity (if verbalized by the patient): Male Spiritual care concerns: No Exam 2 Narrative: GENERAL: Well-appearing, well-nourished, and in no acute distress. HEAD: Normocephalic, atraumatic. EYES: PERRLA and EOMI. ENT: Nares clear, no rhinorrhea or epistaxis. Mucous membranes moist. NECK: Supple. CHEST: Clear to auscultation. No respiratory distress. HEART: Regular rate and rhythm. No murmur heard. Normal peripheral pulses. ABDOMEN: Soft, nontender, nondistended, normal active bowel sounds. EXTREMITIES: Normal range of motion. No edema. SKIN: Warm, dry, no rash. NEURO: No focal deficits. Alert and oriented x3. PSYCH: Normal mood and affect. Course Vital Signs Vital signs: Vital Signs Temperature 36.4 C 05/18/24 18:47 Pulse Rate 109 H 05/18/24 18:47 Respiratory Rate 17 05/18/24 18:47 Blood Pressure 151/98 H 05/18/24 18:47 Pulse Oximetry 100 05/18/24 18:47 Oxygen Delivery Room Air 05/18/24 18:47 Temperature 36.4 C 05/18/24 18:47 Pulse Rate 80 05/19/24 03:00 Respiratory Rate 20 05/19/24 03:00 Blood Pressure 132/88 05/19/24 03:00 Pulse Oximetry 100 05/19/24 03:00 Oxygen Delivery Room Air 05/18/24 18:47 Medical Decision Making MDM Narrative Medical decision making narrative: Differential diagnosis includes viral illness, dehydration, Patient received 2 L of normal saline boluses in the emergency department is feeling much better initial labs showed a CO2 that was low anion gap that was elevated at 18 patient's blood sugar was normal lactic acid was slightly elevated as well Patient received 1/3 L of fluids in the emergency department is negative for COVID negative for flu and negative for RSV urinalysis is currently pending Chest x-ray showed no focal infiltrate Vital Signs Vital Signs: Vital Signs Temperature 36.4 C 05/18/24 18:47 Pulse Rate 109 H 05/18/24 18:47 Respiratory Rate 17 05/18/24 18:47 Blood Pressure 151/98 H 05/18/24 18:47 Pulse Oximetry 100 05/18/24 18:47 Oxygen Delivery Room Air 05/18/24 18:47 Temperature 36.4 C 05/18/24 18:47 Pulse Rate 80 05/19/24 03:00 Respiratory Rate 20 05/19/24 03:00 Blood Pressure 132/88 05/19/24 03:00 Pulse Oximetry 100 05/19/24 03:00 Oxygen Delivery Room Air 05/18/24 18:47 Lab Data 05/18/24 23:54 05/19/24 02:04 Labs: Lab Results 05/18/24 05/19/24 05/19/24 Range/Units 23:54 02:04 02:19 WBC 11.4 H (4.5-10.0) K/mm3 RBC 5.44 (4.6-6.20) M/mm3 Hgb 16.8 D (14.0-18.0) g/dL Hct 48.0 (42.0-52.0) % MCV 88.2 (80-100) fl MCH 30.9 (26-34) pg MCHC 35.0 (32-36) g/dl RDW 12.3 (11.5-14.5) % Plt Count 317 (150-375) k/mm3 MPV 9.7 (7.4-10.4) fl Immature Gran % (Auto) 0.4 (0-0.5) % Neut % (Auto) 78.0 H (45.5-73.1) % Lymph % (Auto) 13.1 L (18.3-44.2) % [place] % (Auto) 7.1 (2.6-8.5) % Eos % (Auto) 0.8 (0-4.4) % Baso % (Auto) 0.6 (0.2-1.2) % Lymph # (Auto) 1.50 (0.9-3.2) K/mm3 [place] # (Auto) 0.8 H (0.1-0.6) K/mm3 Eos # (Auto) 0.1 (0-0.3) K/mm3 Baso # (Auto) 0.1 (0.0-0.1) K/mm3 Abs Immat Gran (auto) 0.05 H (0.00-0.031) K/mm3 Absolute Neuts (auto) 8.9 H (1.3-6.7) K/mm3 Absolute Nucleated RBC 0.000 (0.0-0.012) K/mm3 Nucleated RBC % 0.0 (0.0-0.2) % Sodium 140 140 (137-145) mmol/L Potassium 3.6 3.9 (3.4-5.0) mmol/L Chloride 107 109 H (98-107) mmol/L Carbon Dioxide 15 L 17 L (22-30) mmol/L Anion Gap 18 H 14 H (4-12) mmol/L BUN 12 D 11 (9-20) mg/dL Creatinine 0.99 0.95 (0.7-1.3) mg/dL Estim Creat Clear Calc 97 101 ml/min Estimated GFR > 60 > 60 (59 - ) Glucose 108 99 (65-110) mg/dL Lactic Acid 2.6 H 2.8 H (0.7-2.0) mmol/L Calcium 10.0 8.7 (8.4-10.2) mg/dL Magnesium 2.2 (1.6-2.3) mg/dL Total Bilirubin 1.4 H (0.2-1.3) mg/dL AST 31 (17-59) U/L ALT 54 H (6-50) U/L Alkaline Phosphatase 103 (38-126) U/L Troponin I < 0.012 (0.000-0.034) ng/mL Total Protein 8.0 (6.3-8.2) g/dL Albumin 5.2 H (3.5-5.1) g/dL Lipase 111 (23-300) U/L Procalcitonin 0.1 ng/mL Urine Color Yellow (Yellow) Urine Appearance Cloudy H (Clear) Urine pH 6.0 (5.0-9.0) Ur Specific [place] 1.021 (1.001-1.035) Urine Protein Negative (Negative) mg/dL Urine Glucose (UA) Negative (Negative) mg/dL Urine Ketones 3+ H (Negative) mg/dL Ur Blood (Man) Negative (Negative) Urine Nitrate Negative (Negative) Urine Bilirubin Negative (Negative) Urine Urobilinogen 0.2 (<2.0) mg/dL Add Ur Microanalysis Reviewed Leukocyte Esterase Rfl Negative (Negative) REJI/UL Urine RBC 6-10 H (0-2) /hpf Urine WBC 0-5 (0-3) /hpf Ur Squamous Epith Cells None seen (Few) /hpf Urine Bacteria None seen /hpf Urine Casts 3-5 Influenza A (RT-PCR) Negative (Negative) Influenza B (RT-PCR) Negative (Negative) RSV (RT-PCR) Negative (Negative) SARS-CoV-2 RNA (RT-PCR) Negative (Negative) Discharge Plan Discharge Clinical Impression: Nausea & vomiting, Dehydration Instructions: Dehydration (ED), Acute Nausea and Vomiting (ED) Patient Language: Estonian Prescriptions: New ondansetron 4 mg tablet,disintegrating 4 mg PO Q8H PRN (Reason: nausea and vomiting) Qty: 10 0RF No Action prednisone 20 mg tablet 40 mg PO DAILY 5 Days Qty: 10 0RF Follow-up/Referrals: PHYSICIAN,CORRECTIONAL SECURITY OFFICER [Primary Care Provider] - Malik Ruggiero MD [Physician] - Time of Disposition: 03:33
[2024-05-19 02:00] VITALS: BP 128/81; PULSE 80; RESP 20; O2SAT 100
[2024-05-19 02:08] LABS: Reflex Lactic Acid Yes or No Add Lactic
[2024-05-19 02:28] LABS: Procalcitonin 0.1 ng/mL
[2024-05-19 02:43] LABS: Anion Gap 14 mmol/L (4-12); Blood Urea Nitrogen 11 mg/dL (9-20); Calcium 8.7 mg/dL (8.4-10.2); Carbon Dioxide 17 mmol/L (22-30); Chloride 109 mmol/L (98-107); Estimated CRCL calculation 101 ml/min; Estimated Glomerular Filt Rate > 60; Glucose 99 mg/dL (65-110); Potassium 3.9 mmol/L (3.4-5.0); Sodium 140 mmol/L (137-145)
[2024-05-19 02:44] LABS: Lactic Acid 2.8 mmol/L (0.7-2.0)
[2024-05-19 02:59] LABS: Add Urine Microscopic? YES; Appearance Urine Cloudy (Clear); Bacteria Urine None Seen /hpf; Bilirubin Urine Negative (Negative); Blood Urine Negative (Negative); Color Urine Yellow (Yellow); Glucose Urine UA Negative (Negative); Ketones Urine 3+ mg/dL (Negative); Leukocyte Esterase Ur Negative LEU/UL (Negative); Need Manual Microscopic Reviewed; Nitrate Urine Negative (Negative); Protein Urine Negative (Negative); Specific Grav Ur 1.021 (1.001-1.035); Squamous Epithelial Cell Urine None Seen /hpf (Few); Urobilinogen Urine 0.2 mg/dL (<2.0); WBC Urine 0-5 /hpf (0-3)
[2024-05-19 03:00] VITALS: BP 132/88; PULSE 80; RESP 20; O2SAT 100
== END 2024-05-19 04:15 | disposition home or self-care (01) ==
LOC: ANHED 05-19 00:04
PROVIDERS: Emergency Provider Emergency Medicine
DX: R11.2 Nausea with vomiting, unspecified (principal); E86.0 Dehydration; Z20.822 Contact with and (suspected) exposure to COVID-19; Z90.49 Acquired absence of other specified parts of digestive tract; R00.0 Tachycardia, unspecified; R94.31 Abnormal electrocardiogram [ECG] [EKG]
CPT/HCPCS: 36415; 71045; 80048; 80053; 81001; 83605; 83690; 83735; 84145; 84484; 85025; 87637; 93005; 96361; 96374; 99284; J2405; J7030